=== PATIENT | female | born 1935 | race Caucasian/White ===

== ENCOUNTER 2017-11-07 11:18 | Outpatient (CLI) | payer MEDICARE, BC ==
--- NOTE | 2017-11-07 16:19 | XRAY Report ---
DATE OF SERVICE: 11/07/2017 TWO VIEW CHEST: 11/07/2017 CLINICAL INDICATION: Persistent cough. FINDINGS: Frontal and lateral views of the chest demonstrate a normal cardiac silhouette. The lungs are clear. No effusion or pneumothorax is evident. IMPRESSION: NORMAL CHEST. TD: 11/07/2017 17:18
== END 2017-11-07 11:19 | disposition home or self-care (01) ==
LOC: DI 11:18
PROVIDERS: ATTEND Internal Medicine
DX: R05 Cough (principal)
CPT/HCPCS: 71046

== ENCOUNTER 2017-11-07 23:23 | Outpatient (CLI) | payer MEDICARE, BC | END 2017-11-07 23:24 | disposition critical access hospital (66) | LOC: EMS 23:23 | PROVIDERS: ATTEND Surgery | DX: R11.2 Nausea with vomiting, unspecified (principal); R19.7 Diarrhea, unspecified | CPT/HCPCS: A0425; A0427 ==

== ENCOUNTER 2017-11-07 23:58 | Emergency (ER) | payer MEDICARE, BC ==
[2017-11-08] MEDS ORDERED: SODIUM CHLORIDE 0.9% 1,000 ML IV ONE (00:09)
[2017-11-08 00:34] LABS: BASOPHILS # (AUTO) 0.1 10^3/uL (0.0-0.1); BASOPHILS % (AUTO) 0.9 %; EOSINOPHILS % (AUTO) 0.2 %; HGB - HEMOGLOBIN 15.4 g/dL (12.0-16.0); LYMPHOCYTES # (AUTO) 0.1 10^3/uL (1.5-3.5); LYMPHOCYTES % (AUTO) 0.8 %; MEAN CORPUSCULAR HEMOGLOBIN 30.2 pg (27.0-31.0); MEAN CORPUSCULAR HGB CONC 33.5 g/dL (32.0-36.0); MEAN CORPUSCULAR VOLUME 89.9 fL (81.0-99.0); MEAN PLATELET VOLUME 9.6 fL (7.9-10.8); MONOCYTES # (AUTO) 0.3 10^3/uL (0.0-1.0); MONOCYTES % (AUTO) 2.5 %; NEUTROPHILS # (AUTO) 12.8 10^3/uL (1.5-6.6); NEUTROPHILS % (AUTO) 95.6 %; PLT - PLATELET COUNT 307 10^3/uL (130-450); RED BLOOD COUNT 5.11 10^6/uL (4.20-5.40); RED CELL DISTRIBUTION WIDTH 13.3 % (12.0-15.0); WHITE BLOOD COUNT 13.4 x10^3/uL (4.8-10.8)
[2017-11-08 00:48] LABS: ALBUMIN 4.2 g/dL (3.2-5.5); ALBUMIN/GLOBULIN RATIO 1.6 (1.0-2.2); CALCIUM 8.7 mg/dL (8.5-10.3); TOTAL PROTEIN 6.9 g/dL (6.7-8.2)
--- NOTE | 2017-11-08 01:36 | ED Physician Documentation ---
PD HPI NVD - Stated complaint Stated Complaint: N/V/D - Chief complaint Chief Complaint: Resp - History obtained from History obtained from: Patient, Family, EMS - History of Present Illness Timing - onset: Today Timing - details: Abrupt onset, Now resolved Associated symptoms: No: Fever, Abdominal pain, Hematemesis, Near syncope / syncope Contributing factors: Recent antibiotics Similar symptoms before: No diagnosis Recently seen: Clinic - Additonal information Additional information: Patient is an 82 year old female who is presenting to the emergency department for vomiting and diarrhea. Patient was recently diagnose with a uti and started on augmentin. This evening patient took cough medicine with codeine in it. After taking it patient got nauseated and vomited. patient also had an episode of diarrhea today. EMS treated patient with zofran enroute. Upon initial evaluation patient stated that her symptoms had already resolved. Review of Systems Constitutional: denies: Fever, Chills Eyes: reports: Reviewed and negative Ears: reports: Reviewed and negative Nose: reports: Reviewed and negative Throat: denies: Sore throat Cardiac: denies: Chest pain / pressure Respiratory: denies: Cough, Wheezing GI: reports: Nausea, Vomiting, Diarrhea. denies: Abdominal Pain : denies: Dysuria, Frequency Skin: denies: Rash, Lesions Neurologic: denies: Generalized weakness, Focal weakness Immunocompromised: denies: Immunocompromised PD PAST MEDICAL HISTORY - Past Medical History Cardiovascular: Hypertension Respiratory: None Neuro: Fainting Endocrine/Autoimmune: None GI: None PSYCHOMETRICIAN: Breast cancer : Frequency HEENT: Chronic hearing loss Psych: Depression Musculoskeletal: None Derm: None - Past Surgical History Past Surgical History: Yes /PSYCHOMETRICIAN: Hysterectomy, Mastectomy HEENT: Cataracts, Tonsil/Adenoidectomy - Present Medications Home Medications: Ambulatory Orders Medication Instructions Recorded Confirmed Aspirin [Aspir 81] 81 mg PO DAILY 03/01/13 11/08/17 Hydrochlorothiazide 12.5 mg PO DAILY 03/01/13 11/08/17 Lisinopril 40 mg PO DAILY 03/01/13 11/08/17 Multivitamin [Multi-Vitamin Daily] 1 each PO DAILY 03/01/13 11/08/17 Simvastatin 40 mg PO DAILY 10/27/16 11/08/17 Glucosamine Sulfate 1 tab PO DAILY 10/25/17 11/08/17 Ondansetron Odt [Zofran] 4 mg TL Q6H PRN #14 tablet 11/08/17 - Allergies Allergies/Adverse Reactions: Allergies Allergy/AdvReac Type Severity Reaction Status Date / Time Sulfa (Sulfonamide Allergy Mild Hives Verified 11/08/17 00:04 Antibiotics) - Social History Does the pt smoke?: No Smoking Status: Never smoker Does the pt drink ETOH?: Yes Does the pt have substance abuse?: No - POLST Patient has POLST: No PD ED PE NORMAL - Vitals Vital signs reviewed: Yes - General General: Alert and oriented X 3, No acute distress - HEENT HEENT: Atraumatic, PERRL, Pharynx benign - Neck Neck: Supple, no meningeal sign, No JVD - Cardiac Cardiac: RRR, No murmur - Respiratory Respiratory: No respiratory distress - Abdomen Abdomen: Soft, Non tender, Non distended - Derm Derm: Normal color, Warm and dry, No rash - Extremities Extremities: No deformity, No edema - Neuro Neuro: Alert and oriented X 3, No motor deficit, No sensory deficit, Normal speech Eye Opening: Spontaneous Motor: Obeys Commands Verbal: Oriented GCS Score: 15 Results - Vitals Vitals: Vital Signs - 24 hr 11/08/17 00:01 Temperature 36.6 C Heart Rate 91 Respiratory 18 Rate Blood Pressure 124/86 H O2 Saturation 99 Oxygen O2 Source Cool Mist - Labs Labs: Laboratory Tests 11/08/17 11/08/17 11/08/17 00:29 00:29 00:29 WBC 13.4 H RBC 5.11 Hgb 15.4 Hct 45.9 MCV 89.9 MCH 30.2 MCHC 33.5 RDW 13.3 Plt Count 307 MPV 9.6 Neut # 12.8 H Lymph # 0.1 L [place] # 0.3 Eos # 0.0 Baso # 0.1 Absolute Nucleated RBC 0.00 Nucleated RBC % 0.0 Sodium 134 L Potassium 3.2 L Chloride 94 L Carbon Dioxide 27 Anion Gap 13.0 BUN 22 H Creatinine 1.0 Estimated GFR (MDRD) 53 L Glucose 158 H Calcium 8.7 Total Bilirubin 1.0 AST 32 ALT 27 Alkaline Phosphatase 42 Total Protein 6.9 Albumin 4.2 Globulin 2.7 Albumin/Globulin Ratio 1.6 Lipase 21 L Influenza A (Rapid) Negative Influenza B (Rapid) Negative Influenza Types A,B Ag - PD MEDICAL DECISION MAKING - ED course Complexity details: reviewed old records, reviewed results, re-evaluated patient , considered differential, d/w patient, d/w family ED course: Patient was seen and examined at bedside. patient was well appearing and her symptoms had resolved. IV access was gained and labs were drawn. Patient was treated with a fluid bolus. Patient's diagnostics showed minimal hypokalemia. patient's potassium was replaced. Patient had no episodes of vomiting or diarrhea while in the emergency department. Patient required no further work up and was stable for discharge with outpatient follow up. Departure - Departure Disposition: 01 Home, Self Care Clinical Impression: Adverse drug effect Condition: Good Instructions: ED Nausea Vomiting Follow-Up: Ajay Stevenson MD [Primary Care Provider] - Tomorrow Prescriptions: Ondansetron Odt [Zofran] 4 mg TL Q6H PRN #14 tablet PRN Reason: Nausea / Vomiting Comments: Your diagnostics today were within normal limits. You can take the zofran as needed for nausea and make sure you stay well hydrated with water and electrolyte solutions. You should follow up with your doctor tomorrow if your symptoms persist. You may return to the emergency department at any time for new, worsening or uncontrollable symptoms.
[2017-11-08] MEDS ORDERED: ONDANSETRON ODT 4 MG Prepack 2 TL STA (01:37)
[2017-11-08] MEDS ORDERED: POTASSIUM CHLORIDE 20 MEQ TABLET PO STA (01:39)
[2017-11-08 01:53] VITALS: BP 131/78
== END 2017-11-08 01:52 | disposition home or self-care (01) ==
LOC: EDUNIT# → ED 23:58 → SUPCPDRO 23:58 → ED 11-08 01:52
DX: R11.2 Nausea with vomiting, unspecified (principal); T50.995A Adverse effect of other drugs, medicaments and biological substances, initial encounter; R05 Cough; I10 Essential (primary) hypertension; Z85.3 Personal history of malignant neoplasm of breast; Z90.10 Acquired absence of unspecified breast and nipple; Z79.82 Long term (current) use of aspirin
CPT/HCPCS: 36415; 71046; 80053; 83690; 85025; 87275; 87276; 96360; 99283; A9270

== ENCOUNTER 2018-05-27 14:27 | Outpatient (CLI) | payer MEDICARE, BC ==
--- NOTE | 2018-05-28 13:22 | MRI Report ---
Procedure Date: 05/27/2018 Accession Number: [id number] / [id number] Procedure: MRI - Knee LT W/O CPT Code: FULL RESULT: EXAM: LEFT KNEE MRI WITHOUT CONTRAST EXAM DATE: 05/27/2018 03:45 PM. CLINICAL HISTORY: Posterior left knee pain. COMPARISON: None. TECHNIQUE: Multiplanar, multisequence T1-weighted and fluid-sensitive sequences of the knee without contrast. Other: None. FINDINGS: Bones: There is low T1, high T2 signal change in the medial margin of the medial tibial condyle consistent with marrow edema.. Articular Cartilage: There is mild thinning of the hyaline cartilage of the medial compartment. There is mild thinning of the hyaline cartilage of the medial patellar facet. Medial Meniscus: There is an incomplete radial tear of the body of the medial meniscus. There is mild medial extrusion. Lateral Meniscus: Unremarkable Cruciate Ligaments: The anterior and posterior cruciate ligaments are intact. Collateral Ligaments: The medial collateral and lateral collateral ligamentous structures are intact. Tendons: The quadriceps, patellar, semimembranosus, and popliteus tendons are unremarkable. Musculature: No edema or fatty atrophy. Other: There is a moderate-sized joint effusion.. There is a moderate sized popliteal cyst. No loose bodies. The medial and lateral retinacula are intact. The subcutaneous tissues and fat pads are unremarkable. IMPRESSION: 1. Incomplete radial tear of the body of the medial meniscus. Mild medial extrusion. 2. Moderate-sized joint effusion with a moderate-sized popliteal cyst. 3. Minimal medial compartment osteoarthritis. [facility] MUSCULOSKELETAL RADIOLOGY SECTION
== END 2018-05-27 14:28 | disposition home or self-care (01) ==
LOC: DI 14:27
PROVIDERS: ATTEND Nurse Practitioner Family
DX: S83.242A Other tear of medial meniscus, current injury, left knee, initial encounter (principal); M17.12 Unilateral primary osteoarthritis, left knee; M25.462 Effusion, left knee; M71.22 Synovial cyst of popliteal space [Baker], left knee

== ENCOUNTER 2018-08-25 08:48 | Outpatient (CLI) | payer MEDICARE, BC ==
--- NOTE | 2018-08-28 09:58 | Mammography Report ---
Reason: SCREENING MAMMO LEFT Procedure Date: 08/25/2018 Accession Number: [id number] / [id number] Procedure: HYACINTH - Screening Mammo Dig LT CPT Code: FULL RESULT: EXAM: Screening Mammo Dig LT DATE: 08/25/2018 10:30 AM CLINICAL HISTORY: Personal history of treated breast cancer status post right mastectomy in 2009. Routine screening left breast mammogram TECHNIQUE: Unilateral left CC and MLO views were obtained. COMPARISON: 08/18/2017 through 07/02/2014 FINDINGS: The breasts demonstrate scattered fibroglandular densities bilaterally. There are no suspicious masses, calcifications or areas of distortion. IMPRESSION: Negative examination RECOMMENDATION: Routine annual screening unless otherwise clinically indicated. BI-RADS CATEGORY 1: Negative STANDARD QUALIFYING STATEMENTS: 1. This examination was not reviewed with the aid of Computer-Aided Detection (CAD). 2. A negative or benign imaging report should not preclude biopsy if clinically suspicious findings are present. 3. Dense breasts may obscure an underlying neoplasm. 4. This examination was reviewed with the aid of 3D breast imaging (tomosynthesis).
== END 2018-08-25 08:49 | disposition home or self-care (01) ==
LOC: DI 08:48
DX: Z12.31 Encounter for screening mammogram for malignant neoplasm of breast (principal); Z85.3 Personal history of malignant neoplasm of breast; Z90.11 Acquired absence of right breast and nipple

== ENCOUNTER 2018-08-25 08:51 | Outpatient (CLI) | payer MEDICARE, BC ==
--- NOTE | 2018-08-28 14:33 | DEXA Report ---
Reason: OSTEOPENIA Procedure Date: 08/25/2018 Accession Number: [id number] / [id number] Procedure: DEX - Dexa Spine and/or Hip CPT Code: FULL RESULT: EXAM: Dexa Spine and/or Hip DATE: 08/25/2018 10:12 AM CLINICAL HISTORY: OSTEOPENIA TECHNIQUE: Dual energy x-ray absorptiometry (DXA) was performed on a Somoto System. Regions measured are the AP Spine, femoral neck, and if needed forearm. COMPARISON: None. In accordance with the International Society for Clinical Densitometry (ISCD) guidelines, data from previous exams may be reanalyzed using current recommendations and techniques. This is done to allow a more accurate basis for comparison with the current study. FINDINGS: The data for the lumbar spine is as follows: BMD (g/cm/cm) T-SCORE Z-SCORE REGION L1 0.982 -1.2 1.1 L2 1.050 -1.3 1.0 L3 1.174 -0.2 2.1 L4 1.075 -1.0 1.3 TOTAL Subtracting L3 for DDD 1.040 -1.1 1.2 NOTE: All evaluable vertebrae are used for classification The data for the hip is as follows: BMD (g/cm/cm) T-SCORE Z-SCORE REGION Neck 0.730 -2.2 0.4 TOTAL 0.781 -1.8 0.7 DXA RESULTS SUMMARY: Spine SCAN DATE AGE BMD CHANGE VS CHANGE VS PREVIOUS PREVIOUS % [birth year]25/2019 [age] 1.040 -0.021 -2.0 07[birth year]27[birth year]2016 [age] 1[age]092 * Denotes significant change at the 95% confidence level. Denotes dissimilar scan types or analysis methods. DXA RESULTS SUMMARY: Hip SCAN DATE AGE BMD CHANGE VS CHANGE VS PREVIOUS PREVIOUS % [birth year]25[birth year]2018 83.1 0.781 -0.042* -5.1* 07/27/2016 [age] 0.823 * Denotes significant change at the 95% confidence level. Denotes dissimilar scan types or analysis methods. IMPRESSION: THE WHO CLASSIFICATION BASED ON THE INTERNATIONAL REFERENCE STANDARD IS OSTEOPENIA. THE FRACTURE RISK IS INCREASED. RECOMMENDATION: Patients with diagnosis of osteoporosis or osteopenia should have regular bone mineral density assessment. For those eligible for Medicare, routine testing is allowed once every 2 years. Testing frequency can be increased for patients who have rapidly progressing disease or for those who are receiving medical therapy to restore bone mass. COMMENT: World Health Organization (WHO) definitions for osteoporosis and osteopenia: NORMAL BMD: T-score at -1.0 or higher, fracture risk is low OSTEOPENIA BMD: T-score between -1.0 and -2.5, fracture risk is increased. OSTEOPOROSIS BMD: T-score at -2.5 or lower, fracture risk is high. National Osteoporosis Foundation recommends: 1. Obtain adequate dietary calcium (at least 1200 mg per day) and vitamin D (400-800 international units per day). 2. Participate, as appropriate, in regular weightbearing and muscle-strengthening exercise. 3. Avoid tobacco use and reduce alcohol and caffeine intake. 4. For more detailed information see the website at www.NOF.org.
== END 2018-08-25 08:52 | disposition home or self-care (01) ==
LOC: DI 08:51
PROVIDERS: ATTEND Internal Medicine
DX: M85.88 Other specified disorders of bone density and structure, other site (principal)
CPT/HCPCS: 77080

== ENCOUNTER 2019-07-01 00:28 | Outpatient (CLI) | payer MEDICARE, BC | END 2019-07-01 00:29 | disposition critical access hospital (66) | LOC: EMS 00:28 | PROVIDERS: ATTEND Surgery | DX: R07.9 Chest pain, unspecified (principal) | CPT/HCPCS: A0425; A0427 ==

== ENCOUNTER 2019-07-01 01:05 | Emergency (ER) | payer MEDICARE, BC ==
--- NOTE | 2019-07-01 01:21 | ED Physician Documentation ---
PD HPI CHEST PAIN - Stated complaint Stated Complaint: CP - Chief complaint Chief Complaint: Cardiac - History obtained from History obtained from: Patient, EMS - History of Present Illness Timing - onset: Today Timing - onset during: Rest Timing - duration: Hours (2) Timing - details: Abrupt onset, Now resolved Quality: Throbbing Location: Left chest Radiation: Jaw, Neck, Left upper extremity Improved by: Nitro Associated symptoms: No: Shortness of air, Diaphoresis, Nausea, Vomiting, Feeling faint / dizzy, General Weakness, Palpitations, Cough Similar symptoms before: Diagnosis (angina) Recently seen: Not recently seen - Additional information Additional information: Previously well 83-year-old female was in her bed this evening try to go to sleep when she noted thumping pain in her chest and she had some radiation of pain into her jaw and down her left arm. She could not get comfortable to sleep so she took some nitroglycerin that she had that was 5 years old and she thought that might have helped a little bit. She eventually called the medics and with the arrival of the medics her pain was mostly resolved. She has had all of her pain resolved now and is brought to the emergency department with a sinus tachycardia. 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 She has worked every day and states that she has not felt ill and has not had chest pain or dyspnea with exertion. She has had some trouble with getting up a lot at night to urinate and has has stopped drinking fluids at noon to compensate. Review of Systems Constitutional: denies: Fever Eyes: denies: Decreased vision Ears: denies: Ear pain Nose: denies: Rhinorrhea / runny nose, Congestion Cardiac: reports: Chest pain / pressure, Palpitations. denies: Pedal edema, Calf pain Respiratory: denies: Dyspnea, Cough GI: denies: Abdominal Swelling, Nausea, Vomiting : denies: Dysuria, Frequency Skin: denies: Rash, Laceration (s) Musculoskeletal: reports: Extremity pain. 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 HEENT: Chronic hearing loss Psych: Depression Musculoskeletal: None Derm: None - Past Surgical History Past Surgical History: Yes /BALLOON PILOT: Hysterectomy, Mastectomy HEENT: Cataracts, Tonsil/Adenoidectomy - Present Medications Home Medications: Ambulatory Orders Medication Instructions Recorded Confirmed Aspirin [Aspir 81] 81 mg PO DAILY 03/01/13 07/01/19 Hydrochlorothiazide 12.5 mg PO DAILY 03/01/13 07/01/19 Lisinopril 40 mg PO DAILY 03/01/13 07/01/19 Multivitamin [Multi-Vitamin Daily] 1 each PO DAILY 03/01/13 07/01/19 Glucosamine Sulfate 1 tab PO DAILY 10/25/17 07/01/19 amLODIPine [Norvasc] 2.5 mg PO DAILY 07/01/19 07/01/19 - Allergies Allergies/Adverse Reactions: Allergies Allergy/AdvReac Type Severity Reaction Status Date / Time Sulfa (Sulfonamide Allergy Mild Hives Verified 07/01/19 01:10 Antibiotics) - Social History Does the pt smoke?: No Smoking Status: Never smoker Does the pt drink ETOH?: Yes Does the pt have substance abuse?: No - Immunizations Immunizations are current?: Yes - POLST Patient has POLST: No PD ED PE NORMAL - Vitals Vital signs reviewed: Yes (tachy and hypertenisve mild) - General General: Alert and oriented X 3, No acute distress, Well developed/nourished - HEENT HEENT: Atraumatic, PERRL, EOMI, Other (dry mucous membranes) - Neck Neck: Supple, no meningeal sign, No bony TTP - Cardiac Cardiac: No murmur, Other (tachy to 110) - Respiratory Respiratory: No respiratory distress, Clear bilaterally - Abdomen Abdomen: Soft, Non tender - Back Back: No CVA TTP, No spinal TTP - Derm Derm: Normal color, Warm and dry, No rash - Extremities Extremities: No deformity, No edema, No calf tenderness / cord - Neuro Neuro: Alert and oriented X 3, venereal disease investigator 2-12 intact, No motor deficit, No sensory deficit, Normal speech Eye Opening: Spontaneous Motor: Obeys Commands Verbal: Oriented GCS Score: 15 - Psych Psych: Normal mood, Normal affect Results - Vitals Vitals: Vital Signs - 24 hr 07/01/19 07/01/19 07/01/19 01:06 01:12 03:18 Temperature 36.8 C 36.8 C Heart Rate 110 H 97 81 Respiratory 17 16 115 H Rate Blood Pressure 127/87 H 127/97 H 133/85 H Blood Pressure 127/97 H [Left] O2 Saturation 100 98 94 07/01/19 04:20 Temperature Heart Rate 82 Respiratory 21 Rate Blood Pressure 119/69 Blood Pressure [Left] O2 Saturation 96 Oxygen O2 Source Room air - EKG (time done) 0110 Rate: Rate (enter#) (98) Intervals: Prolonged [place] QRS: LVH Ischemia: Q waves (consistent with prior anterior and inferior) Compare to prior EKG: Changed from prior EKG (SPT 8-14 rate has increased) Computer interpretation: Agree with computer 0421 Rate: Rate (enter#) (76) Rhythm: NSR, Other (PVD X 1 captured) Intervals: Prolonged [place] Ischemia: Q waves (consistent with prior anterior and inferior) Compare to prior EKG: Changed from prior EKG (SPT 0110 the rate has slowed and a single PVD has been captured. ) Computer interpretation: Agree with computer - Labs Labs: Laboratory Tests 07/01/19 07/01/19 07/01/19 01:20 01:20 01:20 WBC 9.2 RBC 4.77 Hgb 14.1 Hct 44.2 MCV 92.7 MCH 29.6 MCHC 31.9 L RDW 13.2 Plt Count 354 MPV 11.2 H Neut # (Auto) 6.4 Lymph # (Auto) 1.7 [place] # (Auto) 0.8 Eos # (Auto) 0.2 Baso # (Auto) 0.1 Absolute Nucleated RBC 0.00 Nucleated RBC % 0.0 Sodium 140 Potassium 3.0 L Chloride 104 Carbon Dioxide 26 Anion Gap 10.0 BUN 21 H Creatinine 0.7 Estimated GFR (MDRD) 80 L Glucose 108 H Calcium 9.3 Total Bilirubin 0.3 AST 18 ALT 14 Alkaline Phosphatase 51 Troponin I High Sens 15.8 H* Total Protein 7.0 Albumin 4.0 Globulin 3.0 Albumin/Globulin Ratio 1.3 Lipase 35 Urine Color Urine Clarity Urine pH Ur Specific [place] Urine Protein Urine Glucose (UA) Urine Ketones Urine Occult Blood Urine Nitrite Urine Bilirubin Urine Urobilinogen Ur Leukocyte Esterase Urine RBC Urine WBC Ur Squamous Epith Cells Urine Bacteria Ur Microscopic Review Urine Culture Comments 07/01/19 07/01/19 02:25 02:36 WBC RBC Hgb Hct MCV MCH MCHC RDW Plt Count MPV Neut # (Auto) Lymph # (Auto) [place] # (Auto) Eos # (Auto) Baso # (Auto) Absolute Nucleated RBC Nucleated RBC % Sodium Potassium Chloride Carbon Dioxide Anion Gap BUN Creatinine Estimated GFR (MDRD) Glucose Calcium Total Bilirubin AST ALT Alkaline Phosphatase Troponin I High Sens 45.0 H* Total Protein Albumin Globulin Albumin/Globulin Ratio Lipase Urine Color YELLOW Urine Clarity CLEAR Urine pH 6.0 Ur Specific [place] 1.010 Urine Protein NEGATIVE Urine Glucose (UA) NEGATIVE Urine Ketones 15 H Urine Occult Blood NEGATIVE Urine Nitrite NEGATIVE Urine Bilirubin NEGATIVE Urine Urobilinogen 0.2 (NORMAL) Ur Leukocyte Esterase MODERATE H Urine RBC None Seen Urine WBC 6-10 H Ur Squamous Epith Cells FEW Squamous Urine Bacteria Few Ur Microscopic Review INDICATED Urine Culture Comments INDICATED - Rads (name of study) chest 1 view Radiology: Prelim report reviewed (Impression: Central pulmonary vascular congestion without overt pulmonary edema.), EMP read indepedently, See rad report Procedures - IVC sono (time) 0150 Bedside IVC sono: IVC measures (cm) (0.79), IVC collapsed c insp (cm) (complete), Dehydration (est 2 liter deficit) 0500 Bedside IVC sono: IVC measures (cm) (1.30), Dehydration (est <1 L deficit after 1.5 liter in.) PD MEDICAL DECISION MAKING - ED course Complexity details: reviewed old records, reviewed results, re-evaluated patient, considered differential, d/w patient ED course: 83-year-old female with a history of hypertension has developed acute palpitations with radiation of pain into her jaw and neck and arm. Her symptoms lasted approximately 2 hours and are now resolved. She is found to be tachycardic and to be significantly dehydrated on interrogation of the inferior vena cava on the order of 2 L deficit. Her electrocardiogram is nonischemic but our supersensitive troponin is elevated 1 tic above normal at 15.8. Here in the emergency department she is administered saline. With the saline her rate is lowered to 76 she remains asymptomatic and her trop is elevated further to 45.0. A second EKG done at 0421 is again without ischemic changes and the rate is lowered. I suspect demand ischemia from tachycardia and the tachycardia from dehydration and the dehydration from drinking less to not have to get up at night and the urinary frequency from UTI. The UTI is treated with IV rocephin. She has demonstrated a + stress test and our hospitalist here is unwilling to admit the patient to our facility as we have nothing specific to offer the patient in regards to cardiac intervention and this may well be indicated. Departure - Departure Disposition: 02 Transfer Acute Care Hosp Clinical Impression: NSTEMI (non-ST elevated myocardial infarction), Dehydration, Hypokalemia Urinary tract infection Qualifiers: Urinary tract infection type: acute cystitis Hematuria presence: without hematuria Qualified Code(s): N30.00 - Acute cystitis without hematuria
[2019-07-01 01:33] LABS: BASOPHILS # (AUTO) 0.1 10^3/uL (0.0-0.1); BASOPHILS % (AUTO) 0.5 %; EOSINOPHILS # (AUTO) 0.2 10^3/uL (0.0-0.7); EOSINOPHILS % (AUTO) 1.9 %; HGB - HEMOGLOBIN 14.1 g/dL (12.0-16.0); LYMPHOCYTES # (AUTO) 1.7 10^3/uL (1.5-3.5); MEAN CORPUSCULAR HEMOGLOBIN 29.6 pg (27.0-31.0); MEAN CORPUSCULAR HGB CONC 31.9 g/dL (32.0-36.0); MEAN CORPUSCULAR VOLUME 92.7 fL (81.0-99.0); MEAN PLATELET VOLUME 11.2 fL (7.9-10.8); MONOCYTES # (AUTO) 0.8 10^3/uL (0.0-1.0); MONOCYTES % (AUTO) 8.5 %; NEUTROPHILS # (AUTO) 6.4 10^3/uL (1.5-6.6); NEUTROPHILS % (AUTO) 69.9 %; PLT - PLATELET COUNT 354 10^3/uL (130-450); RED BLOOD COUNT 4.77 10^6/uL (4.20-5.40); RED CELL DISTRIBUTION WIDTH 13.2 % (12.0-15.0); WHITE BLOOD COUNT 9.2 x10^3/uL (4.8-10.8)
--- NOTE | 2019-07-01 01:39 | XRAY Report ---
Reason: chest pain Procedure Date: 07/01/2019 Accession Number: [id number] / [id number] Procedure: XR - Chest 1 View X-Ray CPT Code: 16481 FULL RESULT: EXAM: CHEST RADIOGRAPHY EXAM DATE: 07/01/2019 01:33 AM. CLINICAL HISTORY: Chest pain. COMPARISON: CHEST 2 VIEW 11/07/2017 11:20 AM. TECHNIQUE: 1 view. FINDINGS: Lungs/Pleura: No focal opacities evident. No pleural effusion. No pneumothorax. Mediastinum: Within exam limitations, the cardiomediastinal contour is normal. Other: Surgical clips at the right axilla. IMPRESSION: Central pulmonary vascular congestion without overt pulmonary edema. RADIA
[2019-07-01 01:40] LABS: ALBUMIN/GLOBULIN RATIO 1.3 (1.0-2.2); BILIRUBIN,TOTAL 0.3 mg/dL (0.2-1.0); CALCIUM 9.3 mg/dL (8.5-10.3); CREATININE 0.7 mg/dL (0.4-1.0)
[2019-07-01] MEDS ORDERED: SODIUM CHLORIDE 0.9% 1,000 ML IV ONE ×2 (01:51→03:09)
[2019-07-01 02:46] LABS: BILIRUBIN,URINE NEGATIVE (NEGATIVE); GLUCOSE, URINE (UA) NEGATIVE (NEGATIVE); KETONES,URINE (UA) 15 mg/dL (NEGATIVE); LEUKOCYTE ESTERASE, URINE MODERATE (NEGATIVE); NITRITE,URINE NEGATIVE (NEGATIVE); OCCULT BLOOD,URINE NEGATIVE (NEGATIVE); PROTEIN,URINE NEGATIVE (NEGATIVE); UROBILINOGEN,URINE 0.2 (NORMAL) E.U./dL (NORMAL)
[2019-07-01 02:48] LABS: CLARITY,URINE CLEAR (CLEAR)
[2019-07-01 02:55] LABS: BACTERIA,URINE Few /HPF (None Seen); RBC,URINE None Seen /HPF (0-5); SQUAMOUS EPITHELIAL CELL,UR FEW Squamous (<= Few)
[2019-07-01] MEDS ORDERED: cefTRIAXone 1 GM in SODIUM CHLORIDE 0.9% MINIBAG 100 ML IV STA (03:01)
[2019-07-01] MEDS ORDERED: POTASSIUM CHLORIDE 20 MEQ TABLET PO STA (05:09)
[2019-07-01 07:16] VITALS: BP 126/70
== END 2019-07-01 07:35 | disposition short-term general hospital (02) ==
LOC: EDUNIT# → ED 01:05
DX: I21.4 Non-ST elevation (NSTEMI) myocardial infarction (principal); R00.0 Tachycardia, unspecified; I44.0 Atrioventricular block, first degree; E86.0 Dehydration; E87.6 Hypokalemia; N30.00 Acute cystitis without hematuria; I10 Essential (primary) hypertension; Z79.82 Long term (current) use of aspirin
CPT/HCPCS: 36415; 71045; 80053; 81001; 83690; 84484; 85025; 87086; 93005; 96361; 96365; 99284; 99285; A9270; 81003

== ENCOUNTER 2019-07-01 07:39 | Outpatient (CLI) | payer MEDICARE, BC | END 2019-07-01 07:40 | disposition home or self-care (01) | LOC: EMS 07:39 | PROVIDERS: ATTEND Surgery | DX: I21.4 Non-ST elevation (NSTEMI) myocardial infarction (principal); E86.0 Dehydration; N39.0 Urinary tract infection, site not specified; E87.6 Hypokalemia | CPT/HCPCS: A0425; A0426 ==

== ENCOUNTER 2019-08-02 08:17 | Outpatient (CLI) | payer MEDICARE, BC ==
[2019-08-02] MEDS ORDERED: GADOBUTROL 7.5 MMOL/7.5 ML VIAL ONE (09:23)
[2019-08-02] MEDS ORDERED: GADOBUTROL 7.5 MMOL/7.5 ML VIAL IVP ONE (09:26)
--- NOTE | 2019-08-02 13:55 | MRI Report ---
Reason: HOMONYMOUS BILATERAL FIELD DEFECTS Procedure Date: 08/02/2019 Accession Number: [id number] / [id number] Procedure: MRI - Brain W/WO CPT Code: FULL RESULT: EXAM: MRI BRAIN AND ORBITS WITHOUT AND WITH CONTRAST EXAM DATE: 08/02/2019 09:40 AM. CLINICAL HISTORY: 84-year-old presenting with homonymous bilateral visual field defects. Evaluate for intracranial pathology or orbital pathology. COMPARISON: None. TECHNIQUE: Multiplanar, multisequence T1-weighted and fluid-sensitive MR sequences of the brain and orbits were performed before and after administration of intravenous contrast. Sequences optimized for routine evaluation. Other: None. IV Contrast: 5.5 cc Gadavist. FINDINGS: Motion artifact technically limits evaluation. Brain Volume: Mild to moderate cortical volume loss. Parenchyma: No acute parenchymal hemorrhage, mass, or midline shift. There is small volume encephalomalacia and gliosis involving the medial right occipital lobe. There is additional mild bilateral areas of T2/FLAIR signal hyperintensity seen. There are no areas of restricted diffusion seen to suggest acute infarct. There is punctate foci susceptibility artifact seen involving the left parieto-occipital region (series 801, image 16). No definite abnormal parenchymal enhancement. Ventricles/Cisterns: No hydrocephalus. No abnormal extra-axial fluid collection or hemorrhage. Orbits: The globes appear symmetric in size and positioning. Changes of bilateral lens replacement. The intraorbital optic nerves appear symmetric in size with no elevated T2 signal hyperintensity. There is increased CSF subarachnoid space seen about the optic nerves. The optic nerves sheaths themselves appear normal without abnormal thickening or enhancement. Extraocular muscles enhance uniformly. No definite intraorbital mass, inflammatory process, fluid collection, or abnormal postcontrast enhancement seen. Sella Turcica: There is an intrinsically T1 hyperintense lesion within the right aspect of the pituitary measuring 10 x 11 x 10 mm (CC by TR by AP). There is suprasellar extension with lesion abutting and displacing the superior optic chiasm superiorly. Additionally the lesion appears to wrap around the left aspect of the optic chiasm. On postcontrast sequences there is a questionable region of hypoenhancement involving the left aspect of the pituitary measuring 13 x 13 x 12 mm (CC by TR by AP). There is suprasellar extension with abutment and superior elevation of the optic chiasm. IAC: Symmetric and unremarkable. Vasculature: Normal signal flow void is seen in the major arterial structures at the skull base. The dural sinuses are patent and enhance normally. Sinuses: No acute sinus disease. Bones: No focal pathologic appearing marrow signal changes. Other: None. IMPRESSION: 1. There is an intrinsically T1 hyperintense lesion involving the right aspect of the pituitary measuring 10 x 11 x 10 mm (CC by TR by AP). There is suprasellar extension with abutment and superior elevation of the optic chiasm. 2. On postcontrast sequences there is a region of hypoenhancement involving the left aspect of the pituitary measuring 13 x 13 x 12 mm (CC by TR by AP). There is suprasellar extension with abutment and superior elevation of the optic chiasm. Lesions within the right and left aspect of the pituitary may represent one large pituitary macroadenoma with hemorrhage of the right aspect. Alternatively these may be too discrete pituitary lesions with the right lesion representing either proteinaceous Rathke's cuff cyst or hemorrhagic pituitary adenoma. 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 Consider neurosurgical consultation and dedicated pituitary imaging. 3. There is increased CSF subarachnoid space seen about the intraorbital optic nerves which is nonspecific. Otherwise the orbits demonstrate no mass, inflammatory process, fluid collection, or abnormal postcontrast enhancement. 4. No acute infarct, acute intraventricular hemorrhage, additional mass, hydrocephalus, or midline shift. 5. Small volume encephalomalacia and gliosis of the medial right occipital lobe likely presenting region of prior infarct. 6. Mild white matter changes that are nonspecific but may represent sequela of chronic small vessels ischemic disease. 7. Punctate foci of chronic hemosiderin deposition involving the left parieto-occipital region. Etiologies include microhemorrhage from hypertension or old hemorrhagic lacunar infarcts. RADIA
== END 2019-08-02 08:18 | disposition home or self-care (01) ==
LOC: DI 08:17
PROVIDERS: ATTEND Optometrist Corneal and Contact Management
DX: E23.7 Disorder of pituitary gland, unspecified (principal); G93.89 Other specified disorders of brain
CPT/HCPCS: 70553; A9585

== ENCOUNTER 2019-09-20 09:39 | Outpatient (CLI) | payer MEDICARE, BC ==
[2019-09-20 18:17] LABS: CORTISOL 9.2 ug/dL
[2019-09-20 18:22] LABS: FREE T4 (FREE THYROXINE) 0.71 ng/dL (0.58-1.64)
[2019-09-20 18:26] LABS: PROLACTIN 26.64 ng/mL; TOTAL T3 0.95 ng/mL (0.87-1.78)
[2019-09-20 18:48] LABS: LUTEINIZING HORMONE 9.52 mIU/mL
== END 2019-09-20 09:40 | disposition home or self-care (01) ==
LOC: LAB.S 09:39
PROVIDERS: ATTEND Internal Medicine Endocrinology, Diabetes & Metabolism
DX: E23.6 Other disorders of pituitary gland (principal)
CPT/HCPCS: 36415; 81599; 82533; 83001; 83002; 84146; 84305; 84439; 84480; 85025

== ENCOUNTER 2019-11-13 12:49 | Outpatient (CLI) | payer MEDICARE, BC ==
--- NOTE | 2019-11-14 08:14 | Mammography Report ---
Reason: ROUTINE MAMMO Procedure Date: 11/13/2019 Accession Number: [id number] / [id number] Procedure: HYACINTH - Screening Mammo Left w/Craig CPT Code: Final Report FULL RESULT: EXAM: Screening Mammo Left w/Craig DATE: 11/13/2019 1:31 PM CLINICAL HISTORY: Screening encounter. Personal history of right breast cancer status post mastectomy in 2009. TECHNIQUE: (L) - Left CC, laterally exaggerated CC, MLO views were obtained. COMPARISON: 08/25/2018 through 04/23/2010. PARENCHYMAL PATTERN: (A) - The breast(s) demonstrate(s) scattered fibroglandular densities. FINDINGS: There are no suspicious masses, calcifications, or areas of distortion. IMPRESSION: Negative examination. BI-RADS category 1. RECOMMENDATION: (ANNUAL) - Recommend routine annual screening mammography. BI-RADS CATEGORY: (1) - Negative. STANDARD QUALIFYING STATEMENTS: 1. This examination was not reviewed with the aid of Computer-Aided Detection (CAD). 2. A negative or benign imaging report should not preclude biopsy if clinically suspicious findings are present. 3. Dense breasts may obscure an underlying neoplasm. 4. This examination was reviewed with the aid of 3D breast imaging (tomosynthesis).
== END 2019-11-13 12:50 | disposition home or self-care (01) ==
LOC: DI 12:49
PROVIDERS: ATTEND Family Medicine
DX: Z12.31 Encounter for screening mammogram for malignant neoplasm of breast (principal); Z85.3 Personal history of malignant neoplasm of breast; Z90.11 Acquired absence of right breast and nipple
CPT/HCPCS: 77063

== ENCOUNTER 2019-11-22 09:31 | Outpatient (CLI) | payer MEDICARE, BC | END 2019-11-22 09:32 | disposition home or self-care (01) | LOC: LAB 09:31 | PROVIDERS: ATTEND Nurse Practitioner Family | DX: E23.6 Other disorders of pituitary gland (principal) | CPT/HCPCS: 36415; 84295 ==

== ENCOUNTER 2019-12-02 15:59 | Outpatient (CLI) | payer MEDICARE, BC | END 2019-12-02 16:00 | disposition home or self-care (01) | LOC: LAB 15:59 | PROVIDERS: ATTEND Internal Medicine Endocrinology, Diabetes & Metabolism | DX: D35.2 Benign neoplasm of pituitary gland (principal) | CPT/HCPCS: 36415; 84295 ==

== ENCOUNTER 2019-12-11 09:19 | Outpatient (CLI) | payer MEDICARE, BC | END 2019-12-11 09:20 | disposition home or self-care (01) | LOC: LAB 09:19 | PROVIDERS: ATTEND Internal Medicine Endocrinology, Diabetes & Metabolism | DX: E22.2 Syndrome of inappropriate secretion of antidiuretic hormone (principal) | CPT/HCPCS: 36415; 84295 ==

== ENCOUNTER 2019-12-27 08:06 | Outpatient (CLI) | payer MEDICARE, BC ==
[2019-12-27 10:22] LABS: FREE T4 (FREE THYROXINE) 0.85 ng/dL (0.58-1.64)
[2019-12-27 10:25] LABS: PROLACTIN 11.81 ng/mL
[2019-12-27 10:26] LABS: TOTAL T3 0.98 ng/mL (0.87-1.78)
[2019-12-27 10:47] LABS: FOLLICLE STIMULATING HORMONE 25.21 mIU/mL
== END 2019-12-27 08:07 | disposition home or self-care (01) ==
LOC: LAB 08:06
PROVIDERS: ATTEND Internal Medicine Endocrinology, Diabetes & Metabolism
DX: E23.6 Other disorders of pituitary gland (principal)
CPT/HCPCS: 36415; 81599; 82533; 83001; 84146; 84439; 84480

== ENCOUNTER 2020-01-03 14:49 | Outpatient (CLI) | payer MEDICARE, BC ==
[2020-01-03 10:20] LABS: CALCIUM 9.4 mg/dL (8.5-10.3); CREATININE 0.8 mg/dL (0.4-1.0)
[2020-01-03] MEDS ORDERED: GADOBUTROL 7.5 MMOL/7.5 ML VIAL ONE (15:37)
[2020-01-03] MEDS ORDERED: GADOBUTROL 7.5 MMOL/7.5 ML VIAL IVP ONE (16:36)
--- NOTE | 2020-01-03 18:08 | MRI Report ---
Reason: PITUITARY MASS Procedure Date: 01/03/2020 Accession Number: [id number] / [id number] Procedure: MRI - Brain W/WO CPT Code: Final Report FULL RESULT: EXAM: MRI BRAIN AND PITUITARY WITHOUT AND WITH CONTRAST. EXAM DATE: 01/03/2020 05:06 PM. 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 History of prior occipital stroke. COMPARISON: BRAIN W/WO 08/02/2019 8:57 AM. TECHNIQUE: Multiplanar, multisequence T1-weighted and fluid-sensitive MR sequences of the brain and pituitary were performed before and after administration of intravenous contrast. Other: None. IV Contrast: 5 cc IV Gadavist. FINDINGS: Postsurgical changes of transsphenoidal adenomectomy with scattered mucosal thickening in the sphenoid sinus bilaterally. Compared to preoperative MRI 08/02/2019, there has been decompression of the inferior aspect of the chiasm without residual mass-effect on the chiasm. Leftward deviation of the pituitary infundibulum. Nonenhancing T1 hyperintense T2 hypointense 5.4 mm nodularity seen at the base of the infundibulum over the diaphragm sella could represent focus of residual blood products. In the sella, heterogeneous enhancing soft tissue to the left of midline inferior gland likely postoperative site. Encephalomalacia right occipital pole, unchanged, likely prior right CAVALRY SCOUT distribution infarct. Unchanged small focus chronic microhemorrhage medial left parietal lobe. No acute infarct, intracranial hemorrhage, midline shift, or hydrocephalus. Limited evaluation of the arterial and dural venous sinus structures are unremarkable. There is no abnormal enhancement along the internal auditory canal or membranous labyrinth. Moderate diffuse cerebral volume loss and mild scattered chronic microvascular changes. IMPRESSION: 1. Baseline postoperative MRI appearance with heterogeneous enhancement of the sellar content. Compared to preoperative MRI 08/02/2019, decompression of the undersurface of the chiasm with resolution of previously seen mass-effect. 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 2. 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 3. No acute infarct, intracranial hemorrhage, midline shift, or hydrocephalus. RADIA
== END 2020-01-03 14:50 | disposition home or self-care (01) ==
LOC: DI 14:49
PROVIDERS: ATTEND Neurological Surgery
DX: E23.6 Other disorders of pituitary gland (principal); E22.2 Syndrome of inappropriate secretion of antidiuretic hormone; Z86.73 Personal history of transient ischemic attack (TIA), and cerebral infarction without residual deficits
CPT/HCPCS: 36415; 70553; 80048; A9585

== ENCOUNTER 2020-12-22 09:17 | Outpatient (CLI) | payer MEDICARE, BC ==
--- NOTE | 2020-12-23 11:33 | Mammography Report ---
UNILATERAL LEFT DIGITAL SCREENING MAMMOGRAM 3D/2D: 12/22/2020 CLINICAL: Routine screening. Routine screening. Personal history of right breast cancer. Comparison is made to exams dated: 11/13/2019 mammogram, 08/18/2017 mammogram, 07/27/2016 mammogram, 10/18/2014 mammogram, 07/02/2014 mammogram, and 05/31/2013 mammogram - [facility]. The tissue of left breast is predominantly fatty. No significant masses, calcifications, or other findings are seen in the breast. There has been no significant interval change. IMPRESSION: NEGATIVE There is no mammographic evidence of malignancy. A 1 year screening mammogram is recommended. This exam was interpreted at Station ID: [id number]. NOTE: For mammograms, a report in lay terms will be sent to the patient. Approximately 15% of breast malignancies will not be visualized mammographically. In the management of a palpable breast mass, a negative mammogram must not discourage biopsy of a clinically suspicious lesion. Electronically Signed By: Jimbo pack/marlon:12/22/2020 10:29:07 ACR BI-RADS Category 1: Negative 3341F PARENCHYMAL PATTERN: (F) - The breast(s) demonstrate(s) diffuse fatty replacement. BI-RADS CATEGORY: (1) - 1 RECOMMENDATION: (ANNUAL) - Recommend routine annual screening mammography. 20211223 1 year screening LATERALITY: (B)
== END 2020-12-22 09:18 | disposition home or self-care (01) ==
LOC: DI 09:17
PROVIDERS: ATTEND Family Medicine
DX: Z12.31 Encounter for screening mammogram for malignant neoplasm of breast (principal); Z85.3 Personal history of malignant neoplasm of breast

== ENCOUNTER 2020-12-22 09:19 | Outpatient (CLI) | payer MEDICARE, BC ==
--- NOTE | 2020-12-23 03:19 | DEXA Report ---
PROCEDURE: Dexa Spine and/or Hip INDICATIONS: POSTMENOPAUSAL TECHNIQUE: Dual energy x-ray absorptiometry (DXA) was performed on a [employer] System. Regions measur ed are the AP Spine, femoral neck, and if needed forearm. COMPARISON: None. FINDINGS: Lumbar Spine: Bone Mineral Density 1.025 g/cm/cm,T score -1.3, Left Femoral Neck: Bone Mineral Density 0.786 g/cm/cm, T score -1.8, (T score greater or equal to -1.0: NORMAL) (T score from -1.1 to -2.4: OSTEOPENIA) (T score less than or equal to -2.5 to: OSTEOPOROSIS) Impression: Osteopenia. Patients with diagnosis of osteoporosis or osteopenia should have regular bone mineral density assess ment. For those eligible for Medicare, routine testing is allowed once every 2 years. Testing frequ ency can be increased for patients who have rapidly progressing disease or for those who are receivin g medical therapy to restore bone mass. Reviewed by: Duarte Alford MD on 12/22/2020 10:36 AM PST Approved by: Duarte Alford MD on 12/22/2020 10:36 AM PST Station ID: [id number]
== END 2020-12-22 09:20 | disposition home or self-care (01) ==
LOC: DI 09:19
PROVIDERS: ATTEND Internal Medicine
DX: M85.89 Other specified disorders of bone density and structure, multiple sites (principal); Z78.0 Asymptomatic menopausal state

== ENCOUNTER 2021-01-29 21:31 | Outpatient (CLI) | payer MEDICARE, BC | END 2021-01-29 21:32 | disposition critical access hospital (66) | LOC: EMS 21:31 | DX: R07.9 Chest pain, unspecified (principal) | CPT/HCPCS: A0425; A0427 ==

== ENCOUNTER 2021-01-29 22:05 | Observation (INO) | payer MEDICARE, BC ==
[2021-01-29] MEDS ORDERED: METOPROLOL 5 MG/5 ML VIAL IVP STA (22:27)
[2021-01-29] MEDS ORDERED: SODIUM CHLORIDE 0.9% 700 ML IV STA (22:29)
[2021-01-29 22:52] LABS: BASOPHILS # (AUTO) 0.1 10^3/uL (0.0-0.1); BASOPHILS % (AUTO) 0.6 %; EOSINOPHILS # (AUTO) 0.1 10^3/uL (0.0-0.7); EOSINOPHILS % (AUTO) 1.2 %; HCT - HEMATOCRIT 39.8 % (37.0-47.0); LYMPHOCYTES # (AUTO) 1.2 10^3/uL (1.5-3.5); LYMPHOCYTES % (AUTO) 12.4 %; MEAN CORPUSCULAR HEMOGLOBIN 29.6 pg (27.0-31.0); MEAN CORPUSCULAR HGB CONC 32.7 g/dL (32.0-36.0); MEAN CORPUSCULAR VOLUME 90.7 fL (81.0-99.0); MEAN PLATELET VOLUME 11.2 fL (7.9-10.8); MONOCYTES # (AUTO) 0.7 10^3/uL (0.0-1.0); MONOCYTES % (AUTO) 7.5 %; NEUTROPHILS # (AUTO) 7.3 10^3/uL (1.5-6.6); NEUTROPHILS % (AUTO) 78.1 %; PLT - PLATELET COUNT 373 10^3/uL (130-450); RED BLOOD COUNT 4.39 10^6/uL (4.20-5.40); RED CELL DISTRIBUTION WIDTH 13.4 % (12.0-15.0); WHITE BLOOD COUNT 9.3 x10^3/uL (4.8-10.8)
[2021-01-29] MEDS ORDERED: diltiaZEM INJ 5 MG/ML VIAL IVP STA (23:08)
[2021-01-29 23:09] LABS: ALBUMIN 3.4 g/dL (3.2-5.5); ALBUMIN/GLOBULIN RATIO 1.3 (1.0-2.2); BILIRUBIN,TOTAL 0.5 mg/dL (0.2-1.0); CALCIUM 8.4 mg/dL (8.5-10.3); CREATININE 0.8 mg/dL (0.4-1.0); POTASSIUM 3.2 mmol/L (3.5-5.0); TOTAL PROTEIN 6.1 g/dL (6.7-8.2)
--- NOTE | 2021-01-29 23:11 | ED Physician Documentation ---
PD HPI CHEST PAIN - Stated complaint Stated Complaint: RAPID HR/CP - Chief complaint Chief Complaint: Cardiac - History obtained from History obtained from: Patient - Additional information Additional information: 85-year-old woman with history of high blood pressure on amlodipine, lisinopril, and hydrochlorothiazide, otherwise healthy presents with palpitations and chest pain starting at rest this evening after going out to dinner with friends and having a beer. She states that she took 3 Tums and 324 of aspirin and the pain resolved prior to EMS arrival. She now states that she feels normal. Patient was found to be in atrial fibrillation on route and continues to be in rapid A. fib in the emergency room. Denies shortness of breath, fevers, nausea, diaphoresis, lightheadedness or other symptoms. She does state that she has had intermittent chest palpitations for the past week but does not have a prior known history of atrial fibrillation. Review of Systems Ten Systems: 10 systems reviewed and negative Constitutional: denies: Fever Cardiac: reports: Chest pain / pressure, Palpitations Respiratory: denies: Dyspnea, Cough GI: denies: Abdominal Pain, Nausea Musculoskeletal: denies: Back pain PD PAST MEDICAL HISTORY - Past Medical History Past Medical History: Yes Cardiovascular: Hypertension Respiratory: None Endocrine/Autoimmune: None GI: None [employer]: Breast cancer : Frequency HEENT: Chronic hearing loss Psych: Depression Musculoskeletal: None Derm: None - Past Surgical History Past Surgical History: Yes /[employer]: Hysterectomy, Mastectomy HEENT: Cataracts, Tonsil/Adenoidectomy - Present Medications Home Medications: Ambulatory Orders Medication Instructions Recorded Confirmed Aspirin [Aspir 81] 81 mg PO DAILY 03/01/13 07/01/19 Hydrochlorothiazide 12.5 mg PO DAILY 03/01/13 07/01/19 Multivitamin [Multi-Vitamin Daily] 1 each PO DAILY 03/01/13 07/01/19 lisinopriL [Lisinopril] 40 mg PO DAILY 03/01/13 07/01/19 amLODIPine [Norvasc] 2.5 mg PO DAILY 07/01/19 07/01/19 - Allergies Allergies/Adverse Reactions: Allergies Allergy/AdvReac Type Severity Reaction Status Date / Time Sulfa (Sulfonamide Allergy Mild Hives Verified 01/29/21 22:18 Antibiotics) - Social History Does the pt smoke?: No Smoking Status: Never smoker Does the pt drink ETOH?: Yes Does the pt have substance abuse?: No - Immunizations Immunizations are current?: Yes - POLST Patient has POLST: No PD ED PE NORMAL - Vitals Vital signs reviewed: Yes - General General: Alert and oriented X 3, No acute distress, Well developed/nourished - HEENT HEENT: Atraumatic, PERRL, EOMI - Neck Neck: Supple, no meningeal sign - Cardiac Cardiac: Other (Tachycardic rate, irregular rhythm) - Respiratory Respiratory: No respiratory distress, Clear bilaterally - Abdomen Abdomen: Non tender, Non distended - Female Female : Deferred - Rectal Rectal: Deferred - Back Back: No CVA TTP - Derm Derm: Normal color - Extremities Extremities: No deformity - Neuro Neuro: Alert and oriented X 3 - Psych Psych: Normal mood, Normal affect Results - Vitals Vitals: Vital Signs - 24 hr 01/29/21 01/29/21 01/29/21 22:05 22:35 22:40 Temperature 36.3 C L Heart Rate 133 H 144 H 135 H Respiratory 18 Rate Blood Pressure 141/100 H 143/93 H 120/87 H O2 Saturation 96 01/29/21 01/29/21 22:45 22:50 Temperature Heart Rate 135 H 116 H Respiratory Rate Blood Pressure 117/45 L 117/96 H O2 Saturation Oxygen O2 Source Room air - Labs Labs: Laboratory Tests 01/29/21 01/29/21 01/29/21 22:46 22:46 22:46 WBC 9.3 RBC 4.39 Hgb 13.0 Hct 39.8 MCV 90.7 MCH 29.6 MCHC 32.7 RDW 13.4 Plt Count 373 MPV 11.2 H Neut # (Auto) 7.3 H Lymph # (Auto) 1.2 L [place] # (Auto) 0.7 Eos # (Auto) 0.1 Baso # (Auto) 0.1 Absolute Nucleated RBC 0.00 Nucleated RBC % 0.0 Sodium 144 Potassium 3.2 L Chloride 108 Carbon Dioxide 29 Anion Gap 7.0 BUN 23 H Creatinine 0.8 Estimated GFR (MDRD) 68 L Glucose 109 H Calcium 8.4 L Total Bilirubin 0.5 AST 17 ALT 12 Alkaline Phosphatase 47 Troponin I High Sens 22.1 H* Total Protein 6.1 L Albumin 3.4 Globulin 2.7 Albumin/Globulin Ratio 1.3 Lipase 37 PD MEDICAL DECISION MAKING - ED course ED course: 85-year-old woman with past medical history of high blood pressure presents with new onset A. fib RVR. Discussed with our hospitalist Dr. Perez who will admit for monitoring and rate control pending initial ed workup. Departure - Departure Disposition: ED Place in Observation Clinical Impression: New onset a-fib, Palpitation, Elevated troponin Condition: Stable
[2021-01-29] MEDS ORDERED: POTASSIUM CHLORIDE 20 MEQ/15 ML UDC PO STA (23:17)
[2021-01-29] MEDS ORDERED: ONDANSETRON 4 MG/2 ML VIAL IVP PRN (23:26)
[2021-01-29] MEDS ORDERED: oxyCODONE 5 MG TABLET PO PRN (23:26)
[2021-01-29] MEDS ORDERED: ONDANSETRON ODT 4 MG TABLET TL PRN (23:26)
[2021-01-29] MEDS ORDERED: SODIUM CHLORIDE FLUSH 0.9% 10 ML SYRINGE IVP PRN (23:26)
[2021-01-29] MEDS ORDERED: ACETAMINOPHEN 325 MG TABLET PO PRN (23:26)
--- OUTSIDE RECORDS SUMMARY | 2021-01-29 23:42 | EXTERNAL MEDICAL SUMMARY RPT | Continuity of Care Document ---
:1935 Demographics Phone Unavailable Preferred Language Unknown Marital Status Unknown Restorationist Affiliation Unknown Race Unknown Ethnic Group Unknown Author Organization [place] Address [address] [phone] Phone Social History date description facility [phone]
--- NOTE | 2021-01-29 23:45 | HISTORY & PHYSICAL EXAMINATION ---
Chief Complaint - Chief Complaint Chief Complaint: chest pain and palpitations History of Present Illness - Admitted From Admitted From:: Home via EMS - History Obtained From Records Reviewed: [facility] History obtained from: Dr. Espana and patient Exam Limitations: none - History of Present Illness HPI Comment/Other: 85-year-old female who presents with palpitations off and on for a week. She had a previous visit to the emergency room in June 2019 when she had chest thumping and chest pain that radiated down her left arm. With that evaluation she was in normal sinus rhythm with Q waves in the anterior inferior leads. High-sensitivity troponin was 15.8. They subsequently kimberlyn to 45 and it was felt to be from demand ischemia from tachycardia and the tachycardia from dehydration. She was transferred to [facility] for further evaluation. Those records are not available to me and I have requested they be sent to us. She now presents to our emergency room with palpitations that started a week ago and intermittent chest pain that started today. The chest pain started after eating dinner with friends. She thought at first it was indigestion so she took 3 Tums. But then did not so she took an aspirin and the chest pain had resolved by the time EMS brought her to the emergency room. There has been no dizziness, nausea, diaphoresis, pedal edema, orthopnea associated with this. Being at rest or walking and doing her usual activities have not altered this. She has had no recent change in her activity. No prolonged driving or sitting. The chest pain is nonradiating. It is located over the left chest wall. Temperature was 36.3. Heart rate was 133. Blood pressure 141/100. 96% satu rated on room air. She is an elderly female who is in no acute distress and cardiovascular and cardiopulmonary exam was essentially normal. Potassium was 3.2. Random glucose 109. Her first troponin is 22.1. EKG shows her to be in atrial fibrillation with RVR. She is received metoprolol without much response and as such was given diltiazem 20 mg IV push. She was also given potassium 20 mEq. While she was in the emergency room the patient spontaneously converted to sinus rhythm. Dr. Espana, emergency room doctor, is now asking for patient to be placed in observation for rate control and monitoring cardiac enzymes. History - Past Medical History Cardiovascular: reports: Hypertension, High cholesterol, Other (chest pain. OBV admit 05/2014, 06/2019) Respiratory: reports: None Neuro: reports: CVA (seen on MRI done for visual field defect and showed medial right occipital lobe and ?left parieto-occipital region. 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 Status post transphenoidal resection) Endocrine/Autoimmune: reports: None GI: reports: None CHIEF SECURITY OFFICER: reports: Breast cancer (Stage 1. Triple neg. 2010. S/p mastectomy and chest wall radiation), Other () : reports: Frequency HEENT: reports: Chronic hearing loss Psych: reports: Depression Musculoskeletal: reports: Osteoarthritis, Osteopenia (Lumbar -1.3, Fem neck - 1.8) Derm: reports: None MRSA Hx?: No - Past Surgical History /CHIEF SECURITY OFFICER: reports: Hysterectomy, Mastectomy HEENT: reports: Cataracts, Tonsil/Adenoidectomy - Family & Social History Family History Comment/Other: Dad of old age in his late 80s and was completely healthy. Mom of old age in her late 80s and had atrial fibrillation. 2 sisters and her brother. Brother is of cancer and both sisters have atrial fibrillation. 5 children. 2 daughters have atrial fibrillation. Living arrangement: At home Living Situation: Alone Social History Notes: From [place]. Mom and dad came over from [place]. She came to live on [address] when her son bought she and her in a house here. That was about 2004. in 2012. She lives in the same house that they moved to when they came to the [place]. 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 Still pays her own bills. Still drives. She never smoked. She drinks a glass of wine a day.Of her 5 children, all of them live nearby in [facility]. 1 son teaches in [employer]. - Substance History Use: Uses substance without health or social issues: NONE Abuse: Recurrent use of substance despite neg consequences: NONE Dependence: Experiences withdrawal or developed tolerances: NONE - POLST Patient has POLST: No POLST Status: Full Code Meds/Allgy - Home Medications Home Medications: Ambulatory Orders Medication Instructions Recorded Confirmed Aspirin [Aspir 81] 81 mg PO DAILY 03/01/13 07/01/19 Hydrochlorothiazide 12.5 mg PO DAILY 03/01/13 07/01/19 Multivitamin [Multi-Vitamin Daily] 1 each PO DAILY 03/01/13 07/01/19 lisinopriL [Lisinopril] 40 mg PO DAILY 03/01/13 07/01/19 amLODIPine [Norvasc] 2.5 mg PO DAILY 07/01/19 07/01/19 - Allergies Allergies/Adverse Reactions: Allergies Allergy/AdvReac Type Severity Reaction Status Date / Time Sulfa (Sulfonamide Allergy Mild Hives Verified 01/29/21 22:18 Antibiotics) Review of Systems - Constitutional Constitutional: denies: Fatigue, Fever, Chills, Malaise, Weakness, Poor appetite, Weight gain, Weight loss - Eyes Eyes: denies: Pain, Irritation, Amaurosis, Blurred vision - Ears, Nose & Throat Ears, Nose & Throat: reports: Hearing loss, Hearing aids. denies: Tinnitus, Vertigo, Nasal pain, Nasal discharge, Sore throat, Hoarseness - Cardiovascular Cariovascular: reports: Irregular heart rate, Palpitations. denies: Chest pain, Edema, Exertional dyspnea, Decr. exercise tolerance - Respiratory Respiratory: denies: Cough, Sputum production, Wheezing, Snoring - Gastrointestinal Gastrointestinal: denies: Change in bowel habits, Black stools, Bloody stools, Nausea, Vomiting, Reflux/heartburn, Bloating - Genitourinary Genitourinary: reports: Incontinence. denies: Dysuria, Frequency, Urgency, Hematuria, Nocturia - Musculoskeletal Musculoskeletal: reports: Stiffness. denies: Muscle pain, Back pain, Muscle aches, Limited range of motion, Muscle weakness, Gout - Integumentary Integumentary: reports: Dryness. denies: Rash, Pruritis, Lesions - Neurological Neurological: denies: General weakness, Focal weakness, Headache, Dizziness, Mem ory problems, Pre-existing deficit - Psychiatric Psychiatric: reports: Depression. denies: Suicidal, Delusions, Hallucinations - Endocrine Endocrine: denies: Polyuria, Polydypsia, Polyphagia - Hematologic/Lymphatic Hematologic/Lymphatic: denies: Anemia, Bruising, Petechiae, Blood clots Prior Level of Functionality: Completely independent with activities of daily living. Very active social life with sisters, sees her children a lot. Still drives, take care of her own home. Exam - Vital Signs Reviewed Vital Signs: Yes Vital Signs: Vital Signs x48h Temp Pulse Resp BP Pulse Ox 01/29/21 22:50 116 H 117/96 H 01/29/21 22:45 135 H 117/45 L 01/29/21 22:40 135 H 120/87 H 01/29/21 22:35 144 H 143/93 H 01/29/21 22:05 36.3 C L 133 H 18 141/100 H 96 - Physical Exam General Appearance: positive: No acute distress, Alert, Other (Thin elderly female. Opted to take out her hearing aids but could hear me just fine. Comfortable, vivacious.) Eyes Bilateral: positive: PERRL, EOMI ENT: positive: Pharynx nml. negative: Pharyngeal erythema Neck: positive: No JVD. negative: Stiff neck Respiratory: positive: No respiratory distress. negative: Wheezes, Rales, Rhonchi Cardiovascular: positive: Regular rate & rhythm, Systolic murmur. negative: Gallop/S4, Friction rub Peripheral Pulses: positive: 1+ Abdomen: positive: Non-tender, No organomegaly, Nml bowel sounds, No distention Skin: positive: Warm, Dry Extremities: positive: Full ROM, No pedal edema Neurologic/Psychiatric: positive: Oriented x3, Motor nml, Sensation nml. negative: CN's nml (2-12) (Deafness. Mild to moderate.), Facial droop, S lurred/abnml speech Conclusion/Plan - Problem List (1) New onset a-fib Conclusion/Plan: Symptoms began a week ago. We did discuss cardioversion if her echocardiogram was negative, but she is definitely not a candidate for cardioversion tonight. After this discussion the patient converted on her own. Initial troponin is 22.1. No TSH done at this time in ER. Chest x-ray has no acute findings. ChadsVasc is 6 points. Stroke risk is 9.7 %/year with the [place] atrial fibrillation cohort study. Other studies have quoted 13.6 risk of stroke/TIA versus systemic embolism. She already has a stroke on MRI that was found incidentally. Plan: Complete work-up for new onset A. fib by placing in observation, checking a nother set of troponins, checking TSH, checking CT pulmonary angiogram if D- dimer is elevated (Especially in view of possible hypercoagulable state with a history of breast cancer). Echocardiogram in the morning Consider treadmill test in the outpatient setting. Get old records from her previous hospitalization to [facility] in June 2019 (2) Elevated troponin Conclusion/Plan: Most likely due to demand ischemia. Not very elevated. Repeat second set. (3) Hypokalemia Conclusion/Plan: Given potassium at 11:17 PM. Plan: Recheck potassium in the morning. - Lab Results Lab results reviewed: Yes Fish Bones: 01/29/21 22:46 01/29/21 22:46 - Diagnostic Imaging Results Diagnostic Imaging Results: positive: Final report reviewed - EKG Results EKG Interpreted Independently: No EKG Comparison: Changed from prior EKG EKG Findings: New atrial fibrillation. Core Measures - Anticipated LOS I expect patient to be DC'd or transferred within 96 hours.: Yes - DVT/VTE - Prophylaxis VTE/DVT Device ordered at admit?: Yes
[2021-01-30] MEDS: SODIUM CHLORIDE FLUSH 0.9% 10 ML SYRINGE IVP SCH ×2 (00:43→09:52)
[2021-01-30 01:36] LABS: B. PARAPERTUSSIS- RESP PCR PAN NOT DETECTED; B. PERTUSSIS- RESP PCR PANEL NOT DETECTED; C. PNEUMONIAE- RESP PCR PANEL NOT DETECTED; CORONAVIRUS 229E-RESP PCR NOT DETECTED; CORONAVIRUS HKU1-RESP PCR NOT DETECTED; CORONAVIRUS NL63-RESP PCR NOT DETECTED; CORONAVIRUS OC43-RESP PCR NOT DETECTED; HUMAN METAPNEUMOVIRUS NOT DETECTED; INFLUENZA A- RESP PCR PANEL NOT DETECTED; INFLUENZA B - RESP PCR PANEL NOT DETECTED; M. PNEUMONIAE- RESP PCR PANEL NOT DETECTED; PARAINFLUENZA VIRUS 1 NOT DETECTED; PARAINFLUENZA VIRUS 2 NOT DETECTED; PARAINFLUENZA VIRUS 3 NOT DETECTED; PARAINFLUENZA VIRUS 4 NOT DETECTED; RHINOVIRUS/ENTEROVIRUS NOT DETECTED; RSV- RESP PCR PANEL NOT DETECTED; SARS-CoV-2 -RESP PCR PANEL NOT DETECTED
[2021-01-30 07:43] LABS: CALCIUM 9.2 mg/dL (8.5-10.3); CREATININE 0.7 mg/dL (0.4-1.0); POTASSIUM 3.8 mmol/L (3.5-5.0)
--- NOTE | 2021-01-30 07:54 | XRAY Report ---
PROCEDURE: Chest 1 View X-Ray INDICATIONS: Chest Pain TECHNIQUE: One view of the chest was acquired. COMPARISON: 11/07/2017 FINDINGS: Surgical changes and devices: None. Lungs and pleura: No pleural effusions or pneumothorax. Lungs are clear. Mediastinum: Mediastinal contours appear normal. Heart size is normal. Bones and chest wall: No suspicious bony lesions. Overlying soft tissues appear unremarkable. IMPRESSION: No acute cardiopulmonary disease process. Reviewed by: Fabiana Martino MD, PhD on 01/30/2021 7:52 AM PDT Approved by: Fabiana Martino MD, PhD on 01/30/2021 7:52 AM PDT Station ID: [id number]
[2021-01-30 11:20] VITALS: BP 141/73
--- NOTE | 2021-01-30 14:01 | Discharge Plan ---
Discharge Plan Problem Reviewed?: Yes Disposition: Home, Self Care Condition: Stable Diet: Regular Activity Restrictions: Activity as Tolerated Shower Restrictions: No (fall precaution) Instruction Topics: Heart Palpitations, Atrial Fibrillation Health Concerns: heart palpitation Plan of Treatment: Now you have Sinus rhythm, and your transient Atrial fibrillation is resolved, you has no palpitation. Your echo is unremarkable. You may keep hydration at home. You may resume your home meds. Care Goals: Stabilization and improvement of new medical condition Assessment: Discussed the care plan and study results with you, you understand Additional Instructions or Follow Up instructions: You may follow-up with your PCP in 1 to 2 weeks. Should your symptoms return or worsen, you may return to ER or call 911 for help No Smoking: If you smoke, Please STOP! Call for help. Follow-up with: Ajay Stevenson MD [Primary Care Provider] -
--- NOTE | 2021-01-30 14:08 | DISCHARGE SUMMARY ---
Discharge Summary Admit Date: 01/29/21 Discharge Date: 01/30/21 Discharging Provider: Adonay Fournier Primary Care Provider: Dr. Ajay Stevenson Condition at Discharge: Stable Discharge Disposition: 01 Home, Self Care Discharge Facility Name: home - DIAGNOSES Discharge Diagnoses with Status of Each Condition: (1) New onset a-fib resolved. pt has already Sinus rhythm. Patient denies palpitation, chest pain. resume home meds and baby aspirin. (2) Elevated troponin pt has a very slightly elevated troponin then became flat. pt denies chest pain, EKG does not reveals acute ST segment variation. it is most likely due to demand ischemia. ECHO is unremarkable as well. discussed all test result with pt and answered pt's questions. pt is happy for that. (3) Hypokalemia resolved. (4)hx of breast cancer stable, continue followup with her oncologist - HPI History of Present Illness: refer from Dr. Perez's HPI on 01/29/21 85-year-old female who presents with palpitations off and on for a week. She had a previous visit to the emergency room in June 2019 when she had chest thumping and chest pain that radiated down her left arm. With that evaluation she was in normal sinus rhythm with Q waves in the anterior inferior leads. High-sensitivity troponin was 15.8. They subsequently kimberlyn to 45 and it was felt to be from demand ischemia from tachycardia and the tachycardia from dehydration. She was transferred to [facility] for further evaluation. Those records are not available to me and I have requested they be sent to us. She now presents to our emergency room with palpitations that started a week ago and intermittent chest pain that started today. The chest pain started after eating dinner with friends. She thought at first it was indigestion so she took 3 Tums. But then did not so she took an aspirin and the chest pain had resolved by the time EMS brought her to the emergency room. There has been no dizziness, nausea, diaphoresis, pedal edema, orthopnea associated with this. Being at rest or walking and doing her usual activities have not altered this. She has had no recent change in her activity. No prolonged driving or sitting. The chest pain is nonradiating. It is located over the left chest wall. Temperature was 36.3. Heart rate was 133. Blood pressure 141/100. 96% saturated on room air. She is an elderly female who is in no acute distress and cardiovascular and cardiopulmonary exam was essentially normal. Potassium was 3.2. Random glucose 109. Her first troponin is 22.1. EKG shows her to be in atrial fibrillation with RVR. She is received metoprolol without much response and as such was given diltiazem 20 mg IV push. She was also given potassium 20 mEq. While she was in the emergency room the patient spontaneously converted to sinus rhythm. Dr. Espana, emergency room doctor, is now asking for patient to be placed in observation for rate control and monitoring cardiac enzymes. - HOSPITAL COURSE Hospital Course: Patient was admitted for palpitation. Patient was found to have a fibrillation with rapid ventricular response. After the patient was given metoprolol and intravenous Cardizem, then in the emergency room she was spontaneously converted to sinus rhythm. Patient's palpitation was already resolved. Patient's troponin was slight elevated then became flat in the second test, EKG does not show acute ST ischemic change, Patient denying chest pain, echo was unremarkable. Patient is discharge as hemodynamic status - ALLERGIES Allergies/Adverse Reactions: Allergies Allergy/AdvReac Type Severity Reaction Status Date / Time Sulfa (Sulfonamide Allergy Mild Hives Verified 01/29/21 22:18 Antibiotics) - MEDICATIONS Home Medications: Ambulatory Orders Medication Instructions Recorded Confirmed Aspirin [Aspir 81] 81 mg PO DAILY 03/01/13 01/30/21 Multivitamin [Multi-Vitamin Daily] 1 each PO DAILY 03/01/13 01/30/21 lisinopriL [Lisinopril] 40 mg PO DAILY 03/01/13 01/30/21 amLODIPine [Norvasc] 2.5 mg PO DAILY 07/01/19 07/01/19 Hydrochlorothiazide 12.5 mg PO DAILY 01/30/21 01/30/21 - PHYSICAL EXAM AT DISCHARGE General Appearance: positive: No acute distress, Alert. negative: Lethargic Eyes Bilateral: positive: Normal inspection, PERRL, No lid inflammation ENT: positive: ENT inspection nml, No signs of dehydration. negative: Dry mucous membranes Neck: positive: Nml inspection, Trachea midline. negative: Thyromegaly, Tracheal deviation Respiratory: positive: Chest non-tender, No respiratory distress, Breath sounds nml. negative: Wheezes, Rales Cardiovascular: positive: Regular rate & rhythm, No murmur. negative: Tachycardia, Bradycardia, Systolic murmur, Diastolic murmur Peripheral Pulses: positive: 2+ Abdomen: positive: Non-tender, Nml bowel sounds, No distention. negative: Tenderness Back: positive: Nml inspection Skin: positive: Color nml, Warm, Dry. negative: Cyanosis, Diaphoresis, Pallor Extremities: positive: Non-tender, Full ROM, Nml appearance. negative: Calf tenderness Neurologic/Psychiatric: positive: Oriented x3, Motor nml, Sensation nml, Mood/affect nml. negative: Weakness, Sensory loss, Facial droop, Slurred/abnml speech, Depressed mood/affect - LABS Result Diagrams: 01/29/21 22:46 01/30/21 07:31 - FOLLOW UP Follow Up: Now you have Sinus rhythm, and your transient Atrial fibrillation is resolved, you has no palpitation. Your echo is unremarkable. You may keep hydration at home. You may resume your home meds. You may follow-up with your PCP in 1 to 2 weeks. Should your symptoms return or worsen, you may return to ER or call 911 for help - TIME SPENT Time Spent in Discharge (Minutes): 20
== END 2021-01-30 14:52 | disposition home or self-care (01) ==
LOC: EDUNIT# → ED 22:05 → MS2 23:26
PROVIDERS: ADMIT Specialist; ATTEND Nurse Practitioner Gerontology
DX: I48.91 Unspecified atrial fibrillation (principal); R77.8 Other specified abnormalities of plasma proteins; E87.6 Hypokalemia; I10 Essential (primary) hypertension; R32 Unspecified urinary incontinence; H91.90 Unspecified hearing loss, unspecified ear; Z20.822 Contact with and (suspected) exposure to COVID-19; Z79.82 Long term (current) use of aspirin; Z79.899 Other long term (current) drug therapy; Z85.3 Personal history of malignant neoplasm of breast
CPT/HCPCS: 36415; 71045; 80048; 80053; 83690; 84443; 84484; 85025; 85379; 87631; 93005; 93306; 96374; 96375; 99284; 99285; A9270; G0378; 0202U

== ENCOUNTER 2021-05-03 16:39 | Emergency (ER) | payer MEDICARE, BC ==
--- NOTE | 2021-05-03 16:56 | ED Physician Documentation ---
PD HPI HEAD INJURY - Stated complaint Stated Complaint: HEAD LAC - History obtained from History obtained from: Patient - History of Present Illness Timing - onset: How many hours ago (1) Pain level max: 0 Pain level now: 0 Location of injury: Back Associated symptoms: No: LOC, AMS, Amnesia, Nausea / vomiting, Neck pain, Paresthesias, Seizures, Ear drainage, Nasal drainage Contributing factors: Anticoagulated - Additional information Additional information: Patient is an 85-year-old female who comes in to the emergency department today because she was sitting on the step when she leaned her head backwards and struck her head on a railing. She states she sustained a laceration to the back of her head. She is on Xarelto currently. No loss of consciousness. No altered mental status. No neck pain. Not currently bleeding. No pain. Happened about 1 hour prior to arrival. Last tetanus was 4 years ago. Review of Systems Constitutional: denies: Fever, Chills Respiratory: denies: Cough GI: denies: Vomiting, Diarrhea Skin: denies: Rash Musculoskeletal: denies: Neck pain, Back pain Neurologic: denies: Seizure, Confused PD PAST MEDICAL HISTORY - Past Medical History Cardiovascular: Hypertension, High cholesterol, Other (chest pain. OBV admit 05/2014, 06/2019) Respiratory: None Neuro: CVA (seen on MRI done for visual field defect and showed medial right occipital lobe and ?left parieto-occipital region. 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 Status post transphenoidal resection) Endocrine/Autoimmune: None GI: None SQL DATA ARCHITECT: Breast cancer (Stage 1. Triple neg. 2010. S/p mastectomy and chest wall radiation), Other () : Frequency HEENT: Chronic hearing loss Psych: Depression Musculoskeletal: Osteoarthritis, Osteopenia (Lumbar -1.3, Fem neck -1.8) Derm: None - Past Surgical History Past Surgical History: Yes /SQL DATA ARCHITECT: Hysterectomy, Mastectomy HEENT: Cataracts, Tonsil/Adenoidectomy - Present Medications Home Medications: Ambulatory Orders Medication Instructions Recorded Confirmed Aspirin [Aspir 81] 81 mg PO DAILY 03/01/13 05/03/21 Multivitamin [Multi-Vitamin Daily] 1 each PO DAILY 03/01/13 05/03/21 lisinopriL [Lisinopril] 40 mg PO DAILY 03/01/13 05/03/21 hydroCHLOROthiazide 12.5 mg PO DAILY 01/30/21 05/03/21 [Hydrochlorothiazide] Rivaroxaban [Xarelto] 1 tab PO DAILY 05/03/21 05/03/21 dilTIAZem HCL [Diltiazem 24Hr ER 120 mg PO DAILY 05/03/21 05/03/21 (Xr)] - Allergies Allergies/Adverse Reactions: Allergies Allergy/AdvReac Type Severity Reaction Status Date / Time Sulfa (Sulfonamide Allergy Mild Hives Verified 05/03/21 17:01 Antibiotics) - Social History Does the pt smoke?: No Smoking Status: Never smoker Does the pt drink ETOH?: Yes Does the pt have substance abuse?: No - Immunizations Immunizations are current?: Yes - POLST Patient has POLST: No POLST Status: Full Code PD ED PE NORMAL - Vitals Vital signs reviewed: Yes - General General: Alert and oriented X 3, No acute distress, Well developed/nourished - HEENT HEENT: PERRL, Moist mucous membranes, Other (Small amount of dried blood in the posterior scalp. No scalp hematomas. 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, No motor deficit, No sensory deficit, Normal speech Eye Opening: Spontaneous Motor: Obeys Commands Verbal: Oriented GCS Score: 15 - Psych Psych: Normal mood, Normal affect Results - Vitals Vitals: Vital Signs - 24 hr 05/03/21 05/03/21 16:57 18:18 Temperature 36.0 C L Heart Rate 87 68 Respiratory 20 16 Rate Blood Pressure 172/82 H 149/68 H O2 Saturation 98 100 Oxygen O2 Source Room air - Rads (name of study) Head CT Radiology: Prelim report reviewed, EMP read contemporaneously, See rad report (no acute Findings) PD MEDICAL DECISION MAKING - ED course Complexity details: reviewed results, re-evaluated patient, considered differential, d/w patient ED course: Patient is an 85-year-old female who presents to the emergency department after striking her head on a railing today. No acute findings on head CT. She is on Xarelto. There is no laceration repair. There is an abrasion on the posterior aspect of the head, in the occiput. Not actively bleeding. Wound was cleansed. Tetanus up-to-date. Patient and family counseled regarding signs and symptoms for which I believe and urgent re-evaluation would be necessary. Patient with good understanding of and agreement to plan and is comfortable going home at this time This document was made in part using voice recognition software. While efforts are made to proofread this document, sound alike and grammatical errors may occu r. Departure - Departure Disposition: 01 Home, Self Care Clinical Impression: Closed head injury Qualifiers: Encounter type: initial encounter Qualified Code(s): S09.90XA - Unspecified injury of head, initial encounter Scalp abrasion Qualifiers: Encounter type: initial encounter Qualified Code(s): S00.01XA - Abrasion of scalp, initial encounter Condition: Good Instructions: ED Abrasion, ED Head Injury Closed Follow-Up: Ajay Stevenson MD [Primary Care Provider] - Comments: Keep any wounds clean. Follow-up with your doctor as needed for further care. You can use Motrin or Tylenol as needed for any pain. Your head CT does not show any acute abnormalities today. If the abrasion starts to bleed again, you can use a towel and pressure to help stop the bleeding. Return if you worsen. Discharge Date/Time: 05/03/21 18:31
--- NOTE | 2021-05-03 17:31 | CT Report ---
PROCEDURE: HEAD WO INDICATIONS: head injury on rail, pt on xarelto TECHNIQUE: Noncontrast 4.5 mm thick angled axial sections acquired from the foramen magnum to the vertex. For r adiation dose reduction, the following was used: automated exposure control, adjustment of mA and/or kV according to patient size. COMPARISON: None. FINDINGS: Image quality: Excellent. CSF spaces: Basal cisterns are patent. No extra-axial fluid collections. Ventricles are normal in size and shape. Brain: Moderate atrophy and mild multifocal white matter hypoattenuation consistent with chronic isch emic change. There is encephalomalacia and gliosis noted in the medial right occipital lobe. No midli ne shift. No intracranial masses or hemorrhage. Saunders-white matter interface is normal. Skull and face: Calvarium and visualized facial bones are intact, without suspicious lesions. Sinuses: Visualized sinuses and mastoids are clear. IMPRESSION: No intracranial hemorrhage or mass effect. Atrophy, chronic ischemic change and old right occipital infarct Reviewed by: Juan Francisco Mccullough MD on 05/03/2021 4:30 PM [facility] Approved by: Juan Francisco Mccullough MD on 05/03/2021 4:30 PM [facility] Station ID: [id number]
[2021-05-03 18:19] VITALS: BP 149/68
== END 2021-05-03 18:31 | disposition home or self-care (01) ==
LOC: ED 16:39
DX: S00.01XA Abrasion of scalp, initial encounter (principal); W22.09XA Striking against other stationary object, initial encounter; Z79.01 Long term (current) use of anticoagulants
CPT/HCPCS: 99282; 99284

== ENCOUNTER 2021-12-15 22:39 | Outpatient (CLI) | payer MEDICARE, BC | END 2021-12-15 22:40 | disposition critical access hospital (66) | LOC: EMS 22:39 | DX: R00.0 Tachycardia, unspecified (principal); R07.9 Chest pain, unspecified; M79.602 Pain in left arm; Z79.01 Long term (current) use of anticoagulants; R51.9 Headache, unspecified | CPT/HCPCS: A0425; A0427 ==

== ENCOUNTER 2021-12-15 23:11 | Emergency (ER) | payer MEDICARE, BC ==
[2021-12-15 23:54] LABS: BASOPHILS # (AUTO) 0.1 10^3/uL (0.0-0.1); BASOPHILS % (AUTO) 0.7 %; EOSINOPHILS # (AUTO) 0.2 10^3/uL (0.0-0.7); EOSINOPHILS % (AUTO) 1.7 %; HCT - HEMATOCRIT 37.4 % (37.0-47.0); HGB - HEMOGLOBIN 12.2 g/dL (12.0-16.0); LYMPHOCYTES # (AUTO) 1.4 10^3/uL (1.5-3.5); LYMPHOCYTES % (AUTO) 15.5 %; MEAN CORPUSCULAR HEMOGLOBIN 29.3 pg (27.0-31.0); MEAN CORPUSCULAR HGB CONC 32.6 g/dL (32.0-36.0); MEAN CORPUSCULAR VOLUME 89.9 fL (81.0-99.0); MEAN PLATELET VOLUME 11.1 fL (7.9-10.8); MONOCYTES # (AUTO) 0.9 10^3/uL (0.0-1.0); MONOCYTES % (AUTO) 10.1 %; NEUTROPHILS # (AUTO) 6.3 10^3/uL (1.5-6.6); NEUTROPHILS % (AUTO) 71.9 %; PLT - PLATELET COUNT 372 10^3/uL (130-450); RED BLOOD COUNT 4.16 10^6/uL (4.20-5.40); RED CELL DISTRIBUTION WIDTH 13.1 % (12.0-15.0); WHITE BLOOD COUNT 8.8 x10^3/uL (4.8-10.8)
[2021-12-16 00:03] LABS: ALBUMIN 3.5 g/dL (3.2-5.5); ALBUMIN/GLOBULIN RATIO 1.2 (1.0-2.2); BILIRUBIN,TOTAL 0.4 mg/dL (0.2-1.0); CALCIUM 8.8 mg/dL (8.5-10.3); CREATININE 0.7 mg/dL (0.4-1.0); POTASSIUM 3.3 mmol/L (3.5-5.0); TOTAL PROTEIN 6.5 g/dL (6.7-8.2)
--- NOTE | 2021-12-16 00:11 | XRAY Report ---
PROCEDURE: Chest 1 View X-Ray INDICATIONS: Chest pain TECHNIQUE: One view of the chest was acquired. COMPARISON: 01/29/2021 FINDINGS: Surgical changes and devices: None. Lungs and pleura: No pleural effusions or pneumothorax. Lungs are clear. Mediastinum: Mediastinal contours appear normal. Heart size is normal. Bones and chest wall: No suspicious bony lesions. Overlying soft tissues appear unremarkable. IMPRESSION: No acute process. Reviewed by: Addison Vásquez MD on 12/16/2021 12:11 AM [facility] Approved by: Addison Vásquez MD on 12/16/2021 12:11 AM [facility] Station ID: [id number]
--- NOTE | 2021-12-16 01:03 | ED Physician Documentation ---
PD HPI CHEST PAIN - Stated complaint Stated Complaint: CHEST PX/SOA - Chief complaint Chief Complaint: Cardiac - History obtained from History obtained from: Patient - History of Present Illness Timing - onset: Enter time (20:00) Timing - onset during: Rest Timing - details: Abrupt onset Pain level now: 4 Quality: Pain Location: Substernal Radiation: Left upper extremity Improved by: Nothing Worsened by: Other (no exacerbating factors) Associated symptoms: No: Shortness of air, Diaphoresis, Nausea, Vomiting, Feeling faint / dizzy, General Weakness, Palpitations, Cough Similar symptoms before: Has not had sx before Recently seen: Not recently seen - Additional information Additional information: c/o midline chest pain radiating to left shoulder, onset at approximately 8 PM tonight while at home at rest. She has mild generalized headache, predominantly bitemporal. She denies palpitations, denies dyspnea. No exacerbating nor ameliorating factors. She takes Xarelto for atrial fibrillation. Review of Systems Constitutional: reports: Reviewed and negative Cardiac: reports: Chest pain / pressure. denies: Palpitations, Pedal edema Respiratory: denies: Dyspnea, Cough GI: reports: Reviewed and negative Musculoskeletal: reports: Reviewed and negative Neurologic: reports: Headache (mild). denies: Generalized weakness, Focal weakness, Numbness PD PAST MEDICAL HISTORY - Past Medical History Cardiovascular: Hypertension, High cholesterol, Other (chest pain. OBV admit 05/2014, 06/2019) Respiratory: None Neuro: CVA (seen on MRI done for visual field defect and showed medial right occipital lobe and ?left parieto-occipital region. 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 Triple neg. 2010. S/p mastectomy and chest wall radiation), Other () : Frequency HEENT: Chronic hearing loss Psych: Depression Musculoskeletal: Osteoarthritis, Osteopenia (Lumbar -1.3, Fem neck -1.8) Derm: None - Past Surgical History Past Surgical History: Yes /TWISTER DOFFER: Hysterectomy, Mastectomy HEENT: Cataracts, Tonsil/Adenoidectomy - Present Medications Home Medications: Ambulatory Orders Medication Instructions Recorded Confirmed Multivitamin [Multi-Vitamin Daily] 1 each PO DAILY 03/01/13 12/16/21 lisinopriL [Lisinopril] 40 mg PO DAILY 03/01/13 12/16/21 hydroCHLOROthiazide 12.5 mg PO DAILY 01/30/21 12/16/21 [Hydrochlorothiazide] Rivaroxaban [Xarelto] 1 tab PO DAILY 05/03/21 12/16/21 dilTIAZem HCL [Diltiazem 24Hr ER 120 mg PO DAILY 05/03/21 12/16/21 (Xr)] - Allergies Allergies/Adverse Reactions: Allergies Allergy/AdvReac Type Severity Reaction Status Date / Time Sulfa (Sulfonamide Allergy Mild Hives Verified 12/15/21 23:15 Antibiotics) - Social History Does the pt smoke?: No Smoking Status: Never smoker Does the pt drink ETOH?: Yes Does the pt have substance abuse?: No - Immunizations Immunizations are current?: Yes - POLST Patient has POLST: No POLST Status: Full Code PD ED PE NORMAL - Vitals Vital signs reviewed: Yes - General General: Alert and oriented X 3, No acute distress, Well developed/nourished - Neck Neck: Supple, no meningeal sign, No JVD - Cardiac Cardiac: No murmur - Respiratory Respiratory: No respiratory distress, Clear bilaterally - Abdomen Abdomen: Soft, Non tender - Derm Derm: Normal color, Warm and dry - Extremities Extremities: No edema - Neuro Neuro: Alert and oriented X 3, Normal speech PD ED PE EXPANDED - Cardiac Cardiac: Tachy, Irregularly irregular Results - Vitals Vitals: Oxygen O2 Source Room air - EKG (time done) No standard instances Rate: Rate (enter#) (112) Rhythm: Atrial fibrillation [place]: LAD QRS: LVH Ischemia: Normal ST segments, Q waves (inferior leads, V1-V4) Compare to prior EKG: Other (similar morphology vs 01/19/21: Q waves inferior and in V leads are seen on both tonights EKG as well as 01/19/21 (the 01/19/21 EKG is NSR with normal rate)) - Labs Labs: Laboratory Tests 12/15/21 12/15/21 12/15/21 23:41 23:41 23:41 WBC 8.8 RBC 4.16 L Hgb 12.2 Hct 37.4 MCV 89.9 MCH 29.3 MCHC 32.6 RDW 13.1 Plt Count 372 MPV 11.1 H Neut # (Auto) 6.3 Lymph # (Auto) 1.4 L [place] # (Auto) 0.9 Eos # (Auto) 0.2 Baso # (Auto) 0.1 Absolute Nucleated RBC 0.00 Nucleated RBC % 0.0 Sodium 139 Potassium 3.3 L Chloride 101 Carbon Dioxide 27 Anion Gap 11.0 BUN 22 H Creatinine 0.7 Estimated GFR (MDRD) 79 L Glucose 115 H Calcium 8.8 Total Bilirubin 0.4 AST 15 ALT 13 Alkaline Phosphatase 56 Troponin I High Sens 16.6 H* Total Protein 6.5 L Albumin 3.5 Globulin 3.0 Albumin/Globulin Ratio 1.2 Lipase 40 12/16/21 01:29 WBC RBC Hgb Hct MCV MCH MCHC RDW Plt Count MPV Neut # (Auto) Lymph # (Auto) [place] # (Auto) Eos # (Auto) Baso # (Auto) Absolute Nucleated RBC Nucleated RBC % Sodium Potassium Chloride Carbon Dioxide Anion Gap BUN Creatinine Estimated GFR (MDRD) Glucose Calcium Total Bilirubin AST ALT Alkaline Phosphatase Troponin I High Sens 18.6 H* Total Protein Albumin Globulin Albumin/Globulin Ratio Lipase - Rads (name of study) chest xray Radiology: Prelim report reviewed, See rad report PD MEDICAL DECISION MAKING - ED course Complexity details: reviewed old records, reviewed results, re-evaluated patient, considered differential, d/w patient ED course: Patients hs-cTn is initially 16.6, repeat 18.6 which does not represent a concerning interval increase. She presents in rapid atrial fibrillation although she does not have palpitations or perceive that her heart is beating irregularly. She is given 15mg IV diltiazem which rapidly controlled the rate and subsequently she converted to NSR with rate in the 70s bpm. Her symptoms resolved shortly after rate control and subsequent conversion to NSR. Results d/w patient, return precautions reviewed, recommended follow up with her primary care provider. Departure - Departure Disposition: 01 Home, Self Care Clinical Impression: Rapid atrial fibrillation Chest pain Qualifiers: Chest pain type: unspecified Qualified Code(s): R07.9 - Chest pain, unspecified Condition: Good Instructions: ED Afib, ED Chest Pain Atypical Unkn Cause Follow-Up: Ajay Stevenson MD [Primary Care Provider] - Comments: The cause of your chest pain is not clear at this time; the tests have no significant abnormalities. As we discussed, your heart rate was very high initially (up to 140 beats per minute) and irregular (atrial fibrillation). You were given a dose of diltiazem through your IV and this resulted in excellent rate control (70s beats per minute) and also converted your rhythm from atrial fibrillation back into a normal (sinus) rhythm. Follow up with your primary care provider within 1 week for reevaluation. Discharge Date/Time: 12/16/21 02:49
[2021-12-16] MEDS ORDERED: diltiaZEM INJ 5 MG/ML VIAL IVP STA (01:17)
[2021-12-16 02:35] VITALS: BP 124/70
== END 2021-12-16 02:49 | disposition home or self-care (01) ==
LOC: EDUNIT# → SUPCPDRO 23:11 → ED 23:11
DX: R07.9 Chest pain, unspecified (principal); I48.20 Chronic atrial fibrillation, unspecified; I10 Essential (primary) hypertension; Z90.13 Acquired absence of bilateral breasts and nipples
CPT/HCPCS: 36415; 80053; 83690; 84484; 85025; 93005; 96374; 99284

== ENCOUNTER 2022-01-16 11:30 | Emergency (ER) | payer MEDICARE, BC ==
[2022-01-16] MEDS ORDERED: diltiaZEM INJ 5 MG/ML VIAL IVP STA (11:45)
[2022-01-16 11:47] LABS: BASOPHILS # (AUTO) 0.1 10^3/uL (0.0-0.1); BASOPHILS % (AUTO) 0.9 %; EOSINOPHILS # (AUTO) 0.1 10^3/uL (0.0-0.7); EOSINOPHILS % (AUTO) 0.7 %; HCT - HEMATOCRIT 43.8 % (37.0-47.0); HGB - HEMOGLOBIN 13.9 g/dL (12.0-16.0); LYMPHOCYTES # (AUTO) 1.6 10^3/uL (1.5-3.5); LYMPHOCYTES % (AUTO) 19.2 %; MEAN CORPUSCULAR HEMOGLOBIN 28.9 pg (27.0-31.0); MEAN CORPUSCULAR HGB CONC 31.7 g/dL (32.0-36.0); MEAN CORPUSCULAR VOLUME 91.1 fL (81.0-99.0); MONOCYTES # (AUTO) 0.8 10^3/uL (0.0-1.0); MONOCYTES % (AUTO) 8.8 %; NEUTROPHILS % (AUTO) 70.2 %; PLT - PLATELET COUNT 463 10^3/uL (130-450); RED BLOOD COUNT 4.81 10^6/uL (4.20-5.40); RED CELL DISTRIBUTION WIDTH 13.5 % (12.0-15.0); WHITE BLOOD COUNT 8.5 x10^3/uL (4.8-10.8)
[2022-01-16 12:03] LABS: ALBUMIN/GLOBULIN RATIO 1.2 (1.0-2.2); BILIRUBIN,TOTAL 0.6 mg/dL (0.2-1.0); CALCIUM 9.8 mg/dL (8.5-10.3); CREATININE 0.9 mg/dL (0.4-1.0); POTASSIUM 3.9 mmol/L (3.5-5.0); TOTAL PROTEIN 7.4 g/dL (6.7-8.2)
--- NOTE | 2022-01-16 12:14 | ED Physician Documentation ---
History of Present Illness - Stated complaint Stated Complaint: CHEST DISCOFORT/HIGH HEART RATE - Chief complaint Chief Complaint: Cardiac - History obtained from History obtained from: Patient, Family - History of Present Illness Timing: Last night - Additonal information Additional information: 86-year-old female with a history of intermittent atrial fibrillation has developed rapid ventricular response last night. She is unaware when this happens but she does have an apple watch on, and this alerted her to the fact that this was occurring. The patient slept without her apple watch on last night and then got up this morning put the apple watch back on heart rate was still fast and she made her way to her primary care doctor's office where she was noted to be in atrial fibrillation with a rapid ventricular response at 150 bpm. She is transferred to to the hospital by private auto feeling well. She indicates that she is not able to sense that the heart rate is fast right now. She denies shortness of breath with exertion. She denies chest pain. Review of Systems Constitutional: denies: Fever Eyes: denies: Decreased vision Ears: denies: Ear pain Nose: denies: Congestion Throat: denies: Oral lesions / sores, Sore throat Cardiac: reports: Palpitations. denies: Chest pain / pressure Respiratory: denies: Dyspnea, Cough GI: denies: Abdominal Pain, Abdominal Swelling, Nausea, Constipation, Diarrhea : denies: Dysuria, Frequency PD PAST MEDICAL HISTORY - Past Medical History Cardiovascular: Hypertension, High cholesterol, Other (chest pain. OBV admit 05/2014, 06/2019) Respiratory: None Neuro: CVA (seen on MRI done for visual field defect and showed medial right occipital lobe and ?left parieto-occipital region. 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 Triple neg. 2010. 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: Hysterectomy, Mastectomy HEENT: Cataracts, Tonsil/Adenoidectomy - Present Medications Home Medications: Ambulatory Orders Medication Instructions Recorded Confirmed Multivitamin [Multi-Vitamin Daily] 1 each PO DAILY 03/01/13 01/16/22 lisinopriL [Lisinopril] 40 mg PO DAILY 03/01/13 01/16/22 hydroCHLOROthiazide 12.5 mg PO DAILY 01/30/21 01/16/22 [Hydrochlorothiazide] Rivaroxaban [Xarelto] 1 tab PO DAILY 05/03/21 01/16/22 dilTIAZem HCL [Diltiazem 24Hr ER 180 mg PO DAILY 01/16/22 01/16/22 (Xr)] - Allergies Allergies/Adverse Reactions: Allergies Allergy/AdvReac Type Severity Reaction Status Date / Time Sulfa (Sulfonamide Allergy Mild Hives Verified 01/16/22 11:37 Antibiotics) - Social History Does the pt smoke?: No Smoking Status: Never smoker Does the pt drink ETOH?: Yes Does the pt have substance abuse?: No - Immunizations Immunizations are current?: Yes - POLST Patient has POLST: No POLST Status: Full Code PD ED PE NORMAL - Vitals Vital signs reviewed: Yes (tachy with diastolic hypertension) - General General: Alert and oriented X 3, No acute distress, Well developed/nourished - HEENT HEENT: Atraumatic, PERRL, EOMI - Neck Neck: Supple, no meningeal sign, No bony TTP - Cardiac Cardiac: No murmur, Other (Rapid rate and rhythm) - Respiratory Respiratory: No respiratory distress, Clear bilaterally - Abdomen Abdomen: Normal bowel sounds, Soft, Non tender, Non distended, No organomegaly - Back Back: No CVA TTP, No spinal TTP - Derm Derm: Normal color, Warm and dry, No rash - Extremities Extremities: No deformity, No edema - Neuro Neuro: Alert and oriented X 3, carroter 2-12 intact, No motor deficit, No sensory deficit, Normal speech Eye Opening: Spontaneous Motor: Obeys Commands Verbal: Oriented GCS Score: 15 - Psych Psych: Normal mood, Normal affect Results - Vitals Vitals: Vital Signs - 24 hr 01/16/22 01/16/22 01/16/22 11:37 12:10 12:30 Temperature 36.4 C L 36.5 C Heart Rate 153 H 81 86 Respiratory 19 16 14 Rate Blood Pressure 130/97 H 113/72 100/71 O2 Saturation 96 99 100 Oxygen O2 Source Room air - EKG (time done) 1133 Rate: Rate (enter#) (140) Rhythm: Atrial fibrillation Ischemia: Q waves, Non specific changes Compare to prior EKG: Changed from prior EKG (SPT 12-15-21 the rate has increased) Computer interpretation: Agree with computer 1202 Rate: Rate (enter#) (79) Rhythm: Atrial fibrillation Compare to prior EKG: Changed from prior EKG (SPT ealier today the rate is slower. ) Computer interpretation: Disagree with computer (The computer reads this as sinus looks on close inspection to by afib/flutter) - Labs Labs: Laboratory Tests 01/16/22 01/16/22 01/16/22 11:41 11:41 11:41 WBC 8.5 RBC 4.81 Hgb 13.9 Hct 43.8 MCV 91.1 MCH 28.9 MCHC 31.7 L RDW 13.5 Plt Count 463 H MPV 11.0 H Neut # (Auto) 6.0 Lymph # (Auto) 1.6 [place] # (Auto) 0.8 Eos # (Auto) 0.1 Baso # (Auto) 0.1 Absolute Nucleated RBC 0.00 Nucleated RBC % 0.0 Sodium 142 Potassium 3.9 Chloride 105 Carbon Dioxide 28 Anion Gap 9.0 BUN 23 H Creatinine 0.9 Estimated GFR (MDRD) 59 L Glucose 88 Calcium 9.8 Total Bilirubin 0.6 AST 20 ALT 18 Alkaline Phosphatase 66 Troponin I High Sens 11.4 Total Protein 7.4 Albumin 4.0 Globulin 3.4 Albumin/Globulin Ratio 1.2 Lipase 35 - Rads (name of study) Chest Radiology: Prelim report reviewed (Impression: No acute cardiopulmonary findings.), EMP read indepedently, See rad report Procedures - IVC sono (time) 1145 Bedside IVC sono: IVC measures (cm) (1.76), Euvolemia PD MEDICAL DECISION MAKING - ED course Complexity details: reviewed old records, reviewed results, re-evaluated patient, considered differential, d/w patient, d/w family ED course: 86-year-old female presented with rapid atrial fibrillation for which she has very little symptoms. She was alerted to this by her apple watch. She appears to be tolerating the rhythm well with a normal troponin. She initially in the emergency department has a rate of 1 40-1 50 and she is administered diltiazem 20 mg intravenously her rate slows to 80 and she appears to convert. After close evaluation of the tracings it is more evident that she is still in atrial fibrillation with a reduced rate. She tolerates this well and she is discharged to home instructed to follow-up with her machine crater regarding Cardizem as a pill in the pocket. Departure - Departure Disposition: Home, Self Care Clinical Impression: Rapid atrial fibrillation Condition: Stable Instructions: ED Afib Follow-Up: Ajay Stevenson MD [Primary Care Provider] - Comments: Nathalia, today it looks like you have tolerated atrial fibrillation with a rapid ventricular response for hours. This is a good indication that your heart is in fair shape. We were able to get you to convert into a normal sinus rhythm with a small dose of diltiazem. Follow-up with Dr. Cook about carrying this medication with you. Discharge Date/Time: 01/16/22 12:50
[2022-01-16 12:39] VITALS: BP 100/71
--- NOTE | 2022-01-16 12:54 | XRAY Report ---
PROCEDURE: Chest 1 View X-Ray INDICATIONS: Chest pain TECHNIQUE: One view of the chest was acquired. COMPARISON: 12/15/2021 FINDINGS: Surgical changes and devices: None. Lungs and pleura: No pleural effusions or pneumothorax. Lungs are clear. Mediastinum: Mediastinal contours appear normal. Heart size is normal. Atherosclerotic vascular ca lcification noted in the aortic arch. Bones and chest wall: No suspicious bony lesions. Overlying soft tissues appear unremarkable. Gene ralized decreased osseous mineralization present. IMPRESSION: No acute cardiopulmonary findings Reviewed by: Juan Francisco Mccullough MD on 01/16/2022 11:52 AM [facility] Approved by: Juan Francisco Mccullough MD on 01/16/2022 11:52 AM [facility] Station ID: [id number]
== END 2022-01-16 12:50 | disposition home or self-care (01) ==
LOC: ED 11:30
DX: I48.91 Unspecified atrial fibrillation (principal)
CPT/HCPCS: 36415; 80053; 83690; 84484; 85025; 93005; 96374; 99283

== ENCOUNTER 2022-07-03 11:36 | Outpatient (CLI) | payer MEDICARE, BC | END 2022-07-03 11:37 | disposition short-term general hospital (02) | LOC: EMS 11:36 | DX: I48.91 Unspecified atrial fibrillation (principal); R53.1 Weakness; R53.83 Other fatigue; R06.09 Other forms of dyspnea | CPT/HCPCS: A0425; A0427 ==

== ENCOUNTER 2022-10-26 12:56 | Outpatient (CLI) | payer MEDICARE, BC ==
--- NOTE | 2022-10-27 11:02 | Mammography Report ---
UNILATERAL LEFT DIGITAL SCREENING MAMMOGRAM 3D/2D WITH EXAGGERATED CC: 10/26/2022 CLINICAL: Routine screening. Routine screening. Personal history of right breast cancer. Comparison is made to exams dated: 12/22/2020 mammogram, 11/13/2019 mammogram, 08/25/2018 mammogram, and 08/18/2017 mammogram - [facility]. The left breast is almost entirely fatty (category a/<25% glandular tissue). There is a possible developing irregular asymmetry with fine calcifications in the left breast middle depth superior region seen on the mediolateral oblique view only. No other significant masses or calcifications are seen in the breast. IMPRESSION: INCOMPLETE: NEEDS ADDITIONAL IMAGING EVALUATION The possible developing irregular asymmetry in the left breast is indeterminate. Additional views wi th possible ultrasound are recommended. This exam was interpreted at Station ID: [id number]. NOTE: For mammograms, a report in lay terms will be sent to the patient. Approximately 15% of breast malignancies will not be visualized mammographically. In the management of a palpable breast mass, a negative mammogram must not discourage biopsy of a clinically suspicious lesion. Electronically Signed By: Orly calles/penrad:10/26/2022 17:17:58 ACR BI-RADS Category 0: Incomplete 3340F PARENCHYMAL PATTERN: (F) - The breast(s) demonstrate(s) diffuse fatty replacement. BI-RADS CATEGORY: (0) - 0 Mammo and [place] [id number] Immediate follow-up LATERALITY: (B)
== END 2022-10-26 12:57 | disposition home or self-care (01) ==
LOC: DI.S 12:56
PROVIDERS: ATTEND Physician Assistant
DX: Z12.31 Encounter for screening mammogram for malignant neoplasm of breast (principal); Z85.3 Personal history of malignant neoplasm of breast

== ENCOUNTER 2022-11-01 12:22 | Outpatient (CLI) | payer MEDICARE, BC ==
--- NOTE | 2022-11-04 12:37 | Ultrasound Report ---
LIMITED ULTRASOUND OF LEFT BREAST: 11/01/2022 CLINICAL: Patient returns today to evaluate an asymmetry in the left breast. Comparison is made to exams dated: 11/01/2022 mammogram, 10/26/2022 mammogram, 12/22/2020 mammogram, 10/18 mammogram, 08/25/2018 mammogram, and 08/18/2017 mammogram - [facility]. Color flow and real-time ultrasound of the left breast 11 o'clock region were performed. Saunders scale images of the real-time examination were reviewed. No significant abnormalities were seen sonographically in the left breast. IMPRESSION: PROBABLY BENIGN There is no abnormality seen in the left breast to correspond with the previously described possible mammography finding in the upper aspect which likely represents summation artifact. This is probably benign. A follow-up left mammogram with possible left ultrasound in 6 months is recommended to demonstrate th at this finding remains no longer seen. Patient can be evaluated to return to screening schedule at t hat time. Findings and recommendations were conveyed to the patient during today's evaluation. This exam was interpreted at Station ID: [id number]. Electronically Signed By: Jimbo Weinberg M.D. aty/:11/01/2022 15:14:25 Ultrasound BI-RADS: 3 Probably benign BI-RADS CATEGORY: (3) - 3 Mammo and [place] [id number] 6 month follow-up LATERALITY: (L)
--- NOTE | 2022-11-04 12:37 | Mammography Report ---
UNILATERAL LEFT DIGITAL DIAGNOSTIC MAMMOGRAM 3D/2D WITH MAGNIFICATION: 11/01/2022 CLINICAL: Patient returns today to evaluate an asymmetry in the left breast. Personal history of righ t breast cancer. Comparison is made to exams dated: 12/22/2020 mammogram, 10/26/2022 mammogram, 11/13/2019 mammogram, 08/25/2018 mammogram, and 08/18/2017 mammogram - [facility]. The left breast is almost entirely fatty (category a/<25% glandular tissue). The possible developing irregular asymmetry with fine calcifications in the left breast middle depth superior region seen on the mediolateral oblique view only is not reproduced and presumably represent ed superimposed breast tissue. This is not seen in additional views. Previously described possible fine calcifications are also not visualized today. No other significant masses or calcifications are seen in the breast. IMPRESSION: INCOMPLETE: NEEDS ADDITIONAL IMAGING EVALUATION Given patient's medical history and prior breast cancer, an ultrasound is recommended to confirm the no longer seen irregular asymmetry in the left breast middle depth superior region. This is schedule d to immediately follow this exam. This exam was interpreted at Station ID: [id number]. NOTE: For mammograms, a report in lay terms will be sent to the patient. Approximately 15% of breast malignancies will not be visualized mammographically. In the management of a palpable breast mass, a negative mammogram must not discourage biopsy of a clinically suspicious lesion. Electronically Signed By: Jimbo Weinberg M.D. aty/:11/01/2022 15:11:50 ACR BI-RADS Category 0: Incomplete 3340F PARENCHYMAL PATTERN: (F) - The breast(s) demonstrate(s) diffuse fatty replacement. BI-RADS CATEGORY: (0) - 0 Ultrasound [id number] Immediate follow-up LATERALITY: (L)
== END 2022-11-01 12:23 | disposition home or self-care (01) ==
LOC: DI 12:22
PROVIDERS: ATTEND Internal Medicine
DX: R92.8 Other abnormal and inconclusive findings on diagnostic imaging of breast (principal); Z85.3 Personal history of malignant neoplasm of breast

== ENCOUNTER 2022-12-10 02:04 | Outpatient (CLI) | payer MEDICARE, BC | END 2022-12-10 23:59 | disposition critical access hospital (66) | LOC: EMS 02:04 | DX: S01.01XA Laceration without foreign body of scalp, initial encounter (principal); W01.190A Fall on same level from slipping, tripping and stumbling with subsequent striking against furniture, initial encounter; Y92.003 Bedroom of unspecified non-institutional (private) residence as the place of occurrence of the external cause | CPT/HCPCS: A0425; A0429 ==

== ENCOUNTER 2022-12-10 02:38 | Emergency (ER) | payer MEDICARE, BC ==
--- NOTE | 2022-12-10 02:45 | ED Physician Documentation ---
PD HPI HEAD INJURY - Stated complaint Stated Complaint: FELL, BUMPED HEAD ON NIGHTSTAND - History obtained from History obtained from: Patient - History of Present Illness Mechanism of head injury: Fell Where head injury occurred: Home - Additional information Additional information: HPI from patient. Patient is brought in by ambulance. Approximately 2 hours prior to arrival to the emergency department, patient struck her head on the nightstand when getting out of bed to use the bathroom. The reason for the delay in the call to 911 by patient is that initially she did not think much of her injury, but she noted shortly before calling 911 that she was having bleeding from a scalp laceration at the site of the injury. Additionally, she takes Xarelto, and is aware that she is to have a very low threshold for calling 911 while taking Xarelto with any head injury. Patient denies loss of consciousness, nausea, vomiting, change in her vision, weakness, numbness. Review of Systems Eyes: denies: Loss of vision, Decreased vision Musculoskeletal: reports: Reviewed and negative Neurologic: reports: Head injury. denies: Generalized weakness, Focal weakness, Numbness, Near syncope, Syncope, Confused, Altered mental status, Headache, LOC PD PAST MEDICAL HISTORY - Past Medical History Cardiovascular: Hypertension, High cholesterol, Other (chest pain. OBV admit 05/2014, 06/2019) Respiratory: None Neuro: CVA (seen on MRI done for visual field defect and showed medial right occipital lobe and ?left parieto-occipital region. 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 Triple neg. 2010. 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 HEENT: Cataracts, Tonsil/Adenoidectomy - Present Medications Home Medications: Ambulatory Orders Medication Instructions Recorded Confirmed Multivitamin [Multi-Vitamin Daily] 1 each PO DAILY 03/01/13 01/16/22 lisinopriL [Lisinopril] 40 mg PO DAILY 03/01/13 01/16/22 hydroCHLOROthiazide 12.5 mg PO DAILY 01/30/21 01/16/22 [Hydrochlorothiazide] Rivaroxaban [Xarelto] 1 tab PO DAILY 05/03/21 01/16/22 dilTIAZem HCL [Diltiazem 24Hr ER 180 mg PO DAILY 01/16/22 01/16/22 (Xr)] - Allergies Allergies/Adverse Reactions: Allergies Allergy/AdvReac Type Severity Reaction Status Date / Time Sulfa (Sulfonamide Allergy Mild Hives Verified 12/10/22 02:45 Antibiotics) - Social History Does the pt smoke?: No Smoking Status: Never smoker Does the pt drink ETOH?: Yes Does the pt have substance abuse?: No - Immunizations Immunizations are current?: Yes - POLST Patient has POLST: No POLST Status: Full Code PD ED PE NORMAL - Vitals Vital signs reviewed: Yes - General General: Alert and oriented X 3, No acute distress, Well developed/nourished, Other (hard of hearing) - HEENT HEENT: PERRL, EOMI - Neck Neck: No bony TTP PD ED PE EXPANDED - HEENT HEENT Visual: 1 - laceration (4 cm length scalp laceration without palpable bony step-off deformity) Results - Vitals Vitals: Vital Signs - 24 hr 12/10/22 12/10/22 12/10/22 02:45 03:30 04:26 Temperature 36.8 C Heart Rate 72 75 72 Respiratory 20 12 16 Rate Blood Pressure 162/80 H 152/84 H 164/79 H O2 Saturation 100 99 100 Oxygen O2 Source Room air - Rads (name of study) [facility] Radiology: Prelim report reviewed, EMP read indepedently, See rad report Procedures - Laceration (location) Scalp right Length in cm: 4 Wound type: Linear, Into subcut fat, Clean Neurovascular status: Sensory intact, Motor intact, Vascular intact Anesthesia: Lidocaine 1% Wound preparation: Irrigated copiously NS, Wound explored, To the base Skin layer closure: Ewelina Other: Patient tolerated well, No complications, Neurovascular intact, Tetanus UTD PD Medical Decision Making - ED course Complexity details: reviewed results, re-evaluated patient, considered differential, d/w patient ED course: CT head performed due to head injury and setting of DOAC (Xarelto). There are n o acute findings on this study (specifically no evidence of intracranial hemorrhage). The right temporal scalp laceration is repaired with ewelina as per the procedure note, above. Return precautions discussed. I advised patient she will need to have the ewelina removed in 8 to 10 days, and that she should contact her primary care provider in the morning (later this morning) to arrange for a follow-up in said time frame. Incidental note on CTH is made of 6mm lesion adjacent to the pituitary gland; this is slightly increased in size compared to previous study (05/03/21). I advised her to follow up with PMD for suture removal and also to mention this abnormality on follow up. Departure - Departure Disposition: 01 Home, Self Care Clinical Impression: Scalp laceration Condition: Good Instructions: ED Laceration Scalp Stitch Or Stap Comments: A total of 9 ewelina were placed in the scalp laceration. As we discussed, you will need to have these removed in 8 to 10 days. Contact your primary care provider's office the next time the office is open to arrange an appointment for this timeframe. There were no acute findings on the CT scan of your head. An incidental note of a very small (6 mm) lesion was found adjacent to your pituitary gland on this CT scan. This was noted on a previous study (May 03, 2021), but it is slightly larger than on the previous study. Be sure to mention this finding to your primary care provider when you follow-up with them; they will advise you further as to whether other testing needs to be undertaken to determine the nature of this finding (such as MRI or repeat CT scan in several months). Discharge Date/Time: 12/10/22 04:41
[2022-12-10] MEDS ORDERED: LIDOCAINE 1% 2 ML VIAL SUBQ STA (02:53)
[2022-12-10 04:27] VITALS: BP 164/79
--- NOTE | 2022-12-10 07:56 | CT Report ---
PROCEDURE: HEAD WO INDICATIONS: head injury, on xarelto TECHNIQUE: Noncontrast 4.5 mm thick angled axial sections acquired from the foramen magnum to the vertex. For r adiation dose reduction, the following was used: automated exposure control, adjustment of mA and/or kV according to patient size. COMPARISON: CT brain 05/03/2021 MRI brain 01/03/2020, 08/02/2019 FINDINGS: Image quality: Excellent. The ventricular system and cortical sulci demonstrate atrophy, consistent for patient's stated age. There are areas of hypodensity in the periventricular and subcortical white matter. There is no acut e intra or extra-axial fluid collection. No midline shift. 6 mm hyperdensity is present at the base of the infundibulum unchanged compared to prior exam. It is noted prior MRI brain of 01/03/2020 demon strates postsurgical changes. Brainstem is unremarkable. 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 Globes are symmetrical. Sinuses are aerated. Osseous structures are intact. Right frontal scalp hemat diallo. IMPRESSION: 1. No acute intracranial process. 2. Moderate atrophy and chronic microvascular ischemic changes. 3. Right frontal scalp hematoma. 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 The above findings are concordant with preliminary report. Reviewed by: Julee Souza MD on 12/10/2022 7:55 AM [facility] Approved by: Julee Souza MD on 12/10/2022 7:55 AM PST Station ID: [id number]
== END 2022-12-10 04:41 | disposition home or self-care (01) ==
LOC: EDUNIT# → ED 02:38
DX: S01.01XA Laceration without foreign body of scalp, initial encounter (principal); W01.190A Fall on same level from slipping, tripping and stumbling with subsequent striking against furniture, initial encounter; Y93.89 Activity, other specified; Y92.003 Bedroom of unspecified non-institutional (private) residence as the place of occurrence of the external cause; R90.89 Other abnormal findings on diagnostic imaging of central nervous system; Z79.01 Long term (current) use of anticoagulants
CPT/HCPCS: 12002; 36415; 99283; 99284